=== PATIENT | male | born 1955 | race Caucasian/White ===

== ENCOUNTER 2016-10-13 13:47 | Inpatient (IN) | payer MEDICARE, OTHER ==
[~2016-10-13] VITALS: Ht 185.4 cm; Wt 125.2 kg
[2016-10-13 13:58] VITALS: BP 147/79
[2016-10-13 14:17] LABS: ABG PCO2 32.5 mmHg (35.0-45.0)
[2016-10-13 14:18] LABS: ABG ALLEN TEST POSITIVE; ABG BASE EXCESS 1.8
[2016-10-13 14:32] LABS: BASOPHILS % (AUTO) 0.9 % (0.0-2.0); EOSINOPHILS % (AUTO) 1.3 % (0.0-3.0); LYMPHOCYTES % (AUTO) 26.9 % (20.0-45.0); MEAN CORPUSCULAR HEMOGLOBIN 27.9 PG (27.0-31.0); MEAN CORPUSCULAR HGB CONC 32.4 G/DL (32.0-36.0); MEAN CORPUSCULAR VOLUME 86 FL (80-99); MEAN PLATELET VOLUME 7.6 FL (6.5-10.1); MONOCYTES % (AUTO) 7.4 % (1.0-10.0); NEUTROPHILS % (AUTO) 63.5 % (45.0-75.0); PLATELET COUNT 246 K/UL (150-450); RED BLOOD COUNT 4.75 M/UL (4.70-6.10); RED CELL DISTRIBUTION WIDTH 12.9 % (11.6-14.8); WHITE BLOOD COUNT 8.7 K/UL (4.8-10.8)
--- NOTE | 2016-10-13 14:37 | Emergency Room Report ---
History of Present Illness General Chief Complaint: Dyspnea/Respdistress Source: Patient, EMS Present Illness HPI [id number] sent from "acute facility" for episode of desaturation to high 80s. Patient states he was sent here because "I woke up later than usual." History of schizoaffective/Asbergers Denies COPD/asthma. Not on home O2. Denies SOB, chest pain, fever/chills currently On looking at lower extremities, he has diffuse redness from mid-calf down - states has had for a while and "now they just apply a cream." per paperwork from SNF, mention of "edema" but not cellulitis Allergies: Uncoded Allergies: PENICILLIN (Allergy, Unknown, 10/13/16) Patient History Past Medical History: psych hx Past Surgical History: none Pertinent Family History: none Social History: Denies: smoking, alcohol use, drug use Immunizations: UTD Reviewed Nursing Documentation: PMH: Agreed, PSxH: Agreed Nursing Documentation-PMH Past Medical History: No History, Except For Hx Hypertension: Yes - Hypothyroidism, localized edema BLE History Of Psychiatric Problem: Yes - Autism, Asperger's Review of Systems All Other Systems: negative except mentioned in HPI Physical Exam Vital Signs Date Time Temp Pulse Resp B/P (MAP) Pulse Ox O2 Delivery O2 Flow Rate FiO2 10/13/16 13:41 98.2 90 16 117/71 94 Room Air Sp02 EP Interpretation: reviewed, normal General Appearance: normal inspection, well appearing, no apparent distress, alert, GCS 15, non-toxic Head: normocephalic, atraumatic Eyes: bilateral eye PERRL, bilateral eye EOMI ENT: normal ENT inspection, hearing grossly normal, normal voice Neck: normal inspection, full range of motion, supple, no bony tend Respiratory: normal inspection, lungs clear, normal breath sounds, no respiratory distress, no retraction, no accessory muscle use, no wheezing, speaking full sentences Cardiovascular #1: regular rate, rhythm, no edema Gastrointestinal: normal inspection, normal bowel sounds, non tender, soft, no guarding, no hernia Genitourinary: no CVA tenderness Musculoskeletal: normal inspection, back normal, normal range of motion, Mahogany' s Sign negative, other - Pitting edema 2+ and very erythematous extremities to mid-calf. Right lower extremity with skin breakdown, purulent ulcerations Neurologic: normal inspection, alert, oriented x3, responsive, senior java programmer analyst III-XII nml as tested, motor strength/tone normal, speech normal Psychiatric: normal inspection, judgement/insight normal, mood/affect normal Skin: normal inspection, normal color, no rash Medical Decision Making Diagnostic Impression: Primary Impression: Cellulitis of right lower extremity Additional Impression: Cellulitis of left leg ER Course Re initial complaint of dyspnea - afebrile. O2 sat 100% on RA. No history of asthma/COPD/CHF. No SOB, chest pain, Lungs CTAB. ECG is NSR. Troponin 0. ABG is pH normal. CO2 and O2 normal. Mild respi alkalosis. CXR with mild left sided lower pleural effusion - given afebrile, no leuks, no respi address, will NOT tx for PNA at this time However also with severe bilateral lower extremity cellulitis No leuks Empiric Vanc given in ED Blood Cx pending Bilateral lower ext sono to r/o DVT pending at time of admission Endorses to Dr Bills at 3pm for med/surg admission EKG Diagnostic Results Rate: normal Rhythm: NSR ST Segments: no acute changes ASA given to the pt in ED: No Rhythm Strip Diag. Results EP Interpretation: yes Rate: 75 Rhythm: NSR, no PVC's, no ectopy Chest X-Ray Diagnostic Results Chest X-Ray Diagnostic Results : Chest X-Ray Ordered: Yes # of Views/Limited/Complete: 1 View Indication: Shortness of Breath EP Interpretation: Yes Interpretation: no consolidation, no pneumothorax, no acute cardiopulmonary disease, other - Left lower small pleural effusion Electronically Signed by: Dr Rod Banks MD Last Vital Signs Date Time Temp Pulse Resp B/P (MAP) Pulse Ox O2 Delivery O2 Flow Rate FiO2 10/13/16 13:58 97.8 84 18 147/79 98 Room Air Status: improved Disposition: ADMITTED INPATIENT Condition: Serious ROD BANKS M.D. Oct 13, 2016 14:37
[2016-10-13 14:50] LABS: ALANINE AMINOTRANSFERASE 18 U/L (3-41); ANION GAP 11 (5-15); ASPARTATE AMINO TRANSFERASE 27 U/L (5-40); CARBON DIOXIDE 24 mEQ/L (20-30); CHLORIDE 94 mEQ/L (98-107); CREATININE 0.9 mg/dL (0.7-1.2); GLOMERULAR FILTRATION RATE > 60 mL/min (>60); HEMOLYSIS 95; POTASSIUM 4.5 mEQ/L (3.4-4.9); SODIUM 129 mEQ/L (135-145); TOTAL PROTEIN 6.7 g/dL (6.6-8.7)
[2016-10-13 14:51] LABS: TROPONIN I < 0.30 ng/mL (<=0.30)
[2016-10-13 15:00] LABS: CKMB 5.8 ng/mL (< 6.7)
[2016-10-13] MEDS ORDERED: DULCOLAX10 MG RC (15:11)
[2016-10-13] MEDS ORDERED: FLEET ENEMA133 ML RECTAL (15:12)
[2016-10-13] MEDS ORDERED: ACETAMINOPHEN325 M1 ORAL (15:14)
[2016-10-13] MEDS ORDERED: DuoNeb 0.5-3(2.5)mg/3ml neb HHN PRN (15:15)
[2016-10-13] MEDS ORDERED: IBUPROFEN600 MG ORAL (15:15)
[2016-10-13] MEDS ORDERED: Morphine Sulfate 2mg/ml Inj IVP PRN (15:15)
[2016-10-13] MEDS ORDERED: Nitroglycerin Subl 0.4mg tab (Bottle Of 25) SL PRN (15:15)
[2016-10-13] MEDS ORDERED: Miralax 17gm pkt ORAL PRN (15:15)
[2016-10-13] MEDS ORDERED: DIPHENHYDRAMINE25 M1 ORAL (15:17)
[2016-10-13] MEDS ORDERED: CARDURA8 MG ORAL (15:18)
[2016-10-13] MEDS ORDERED: BENZTROPINE MESY2 MG ORAL (15:19)
[2016-10-13] MEDS ORDERED: COLACE100 MG ORAL (15:20)
[2016-10-13] MEDS ORDERED: LEVOTHYROXINE50 MCG ORAL (15:21)
[2016-10-13] MEDS ORDERED: LIPITOR20 MG ORAL (15:22)
--- NOTE | 2016-10-13 15:22 | Infectious Diseases Prog Note ---
Assessment/Plan Problems: (1) Cellulitis of right lower extremity Assessment & Plan: started on vancomycin and cefepime , will send blood culture (2) Hyponatremia Assessment & Plan: dehydration related, monitor sodium level (3) Hypoxemia Assessment & Plan: pulmonogist is following Subjective Allergies: Uncoded Allergies: PENICILLIN (Allergy, Unknown, 10/13/16) Objective Vital Signs Last 24 Hour Vital Signs Date Time Temp Pulse Resp B/P (MAP) Pulse Ox O2 Delivery O2 Flow Rate FiO2 10/13/16 14:47 84 14 Room Air 10/13/16 13:58 97.8 84 18 147/79 98 Room Air 10/13/16 13:41 98.2 90 16 117/71 94 Room Air Height (Feet): 6 Height (Inches): 1.00 Weight (Pounds): 276 Laboratory Tests Test 10/13/16 13:53 10/13/16 14:15 Arterial Blood pH 7.495 (7.350-7.450) Arterial Blood Partial Pressure CO2 32.5 mmHg (35.0-45.0) L Arterial Blood Partial Pressure O2 72.5 mmHg (75.0-100.0) L Arterial Blood HCO3 24.5 mmol/L (22.0-26.0) Arterial Blood Oxygen Saturation 94.7 % (92.0-98.0) Arterial Blood Base Excess 1.8 Abhishek Test Positive White Blood Count 8.7 K/UL (4.8-10.8) Red Blood Count 4.75 M/UL (4.70-6.10) Hemoglobin 13.3 G/DL (14.2-18.0) L Hematocrit 40.9 % (42.0-52.0) L Mean Corpuscular Volume 86 FL (80-99) Mean Corpuscular Hemoglobin 27.9 PG (27.0-31.0) Mean Corpuscular Hemoglobin Concent 32.4 G/DL (32.0-36.0) Red Cell Distribution Width 12.9 % (11.6-14.8) Platelet Count 246 K/UL (150-450) Mean Platelet Volume 7.6 FL (6.5-10.1) Neutrophils (%) (Auto) 63.5 % (45.0-75.0) Lymphocytes (%) (Auto) 26.9 % (20.0-45.0) Monocytes (%) (Auto) 7.4 % (1.0-10.0) Eosinophils (%) (Auto) 1.3 % (0.0-3.0) Basophils (%) (Auto) 0.9 % (0.0-2.0) Sodium Level 129 mEQ/L (135-145) L Potassium Level 4.5 mEQ/L (3.4-4.9) Chloride Level 94 mEQ/L (98-107) L Carbon Dioxide Level 24 mEQ/L (20-30) Anion Gap 11 (5-15) Blood Urea Nitrogen 14 mg/dL (7-23) Creatinine 0.9 mg/dL (0.7-1.2) Estimat Glomerular Filtration Rate > 60 mL/min (>60) Glucose Level 89 mg/dL (74-106) Calcium Level 9.0 mg/dL (8.6-10.2) Total Bilirubin < 0.2 mg/dL (0.0-1.2) Aspartate Amino Transf (AST/SGOT) 27 U/L (5-40) Alanine Aminotransferase (ALT/SGPT) 18 U/L (3-41) Alkaline Phosphatase 117 U/L (40-129) Total Creatine Kinase 231 U/L (38-174) H Creatine Kinase MB 5.8 ng/mL (< 6.7) Creatine Kinase MB Relative Index 2.5 Troponin I < 0.30 ng/mL (<=0.30) Pro-B-Type Natriuretic Peptide 32 pg/mL (0-125) Total Protein 6.7 g/dL (6.6-8.7) Albumin 3.5 g/dL (3.5-5.2) Globulin 3.2 g/dL Albumin/Globulin Ratio 1.0 (1.0-2.7) Current Medications Medications (Trade) Dose Ordered Sig/Calvin Route PRN Reason Start Time Stop Time Status Last Admin Dose Admin Acetaminophen (Tylenol) 650 mg Q4H PRN ORAL fever 10/13/16 15:15 11/12/16 15:14 UNV Albuterol/ Ipratropium (DuoNeb 0.5-3(2.5)mg/3ml) 3 ml EVERY 4 HOURS PRN HHN Shortness of Breath 10/13/16 15:15 10/18/16 15:14 UNV Cefepime HCl 2 gm/ Dextrose 110 ml @ 220 mls/hr EVERY 12 HOURS IV 10/13/16 21:00 10/20/16 20:59 UNV Clonidine HCl (Catapres) 0.1 mg Q4H PRN ORAL For High Blood Pressure 10/13/16 15:15 11/12/16 15:14 UNV Dextrose (Dextrose 50%) STAT PRN IV Hypoglycemia 10/13/16 15:15 11/12/16 15:14 UNV Heparin Sodium (Porcine) (Heparin 5000 units/ml) 5,000 units EVERY 12 HOURS SUBQ 10/13/16 21:00 11/12/16 20:59 UNV Morphine Sulfate (Morphine Sulfate) 2 mg EVERY 4 HOURS PRN IVP Moderate Pain (Pain Scale 4-6) 10/13/16 15:15 10/20/16 15:14 UNV Nitroglycerin (Ntg) 0.4 mg Every 5 Minutes PRN SL Prn Chest Pain 10/13/16 15:15 11/12/16 15:14 UNV Ondansetron HCl (Zofran) 4 mg Q6H PRN IVP Nausea & Vomiting 10/13/16 15:15 11/12/16 15:14 UNV Polyethylene Glycol (Miralax) 17 gm DAILYPRN PRN ORAL Constipation 10/13/16 15:15 11/12/16 15:14 UNV Temazepam (Restoril) 15 mg HSPRN PRN ORAL Insomnia 10/13/16 15:15 10/20/16 15:14 UNV Vancomycin HCl 1 gm/Dextrose 275 ml @ 183.3 mls/ hr Q24H IV 10/14/16 00:30 10/19/16 00:29 UNV Nico Cheng M.D. Oct 13, 2016 15:22
[2016-10-13] MEDS ORDERED: LISINOPRIL2.5 MG ORAL (15:23)
[2016-10-13] MEDS ORDERED: PROSCAR5 MG ORAL (15:24)
[2016-10-13] MEDS ORDERED: NAPROXEN250 MG ORAL (15:24)
[2016-10-13] MEDS ORDERED: AMITIZA8 MCG ORAL (15:27)
[2016-10-13] MEDS ORDERED: VALIUM10 MG ORAL (15:29)
[2016-10-13] MEDS ORDERED: ATIVAN2 MG ORAL (15:30)
[2016-10-13] MEDS ORDERED: DEPAKOTE ER500 MG ORAL (15:35)
[2016-10-13] MEDS ORDERED: QUETIAPINE FUM200 MG ORAL (15:36)
[2016-10-13] MEDS ORDERED: ZYPREXA10 MG ORAL (15:41)
[2016-10-13] MEDS ORDERED: LATUDA20 MG PO (15:42)
--- NOTE | 2016-10-13 15:43 | Diagnostic Imaging Report ---
Indication: SOB Technique: One view of the chest Comparison: none Findings: Inspiration is somewhat suboptimal. There is atelectasis at the left lung base. The lungs and pleural space otherwise clear. The heart is borderline enlarged. Impression: Left basilar atelectasis No definite acute process otherwise Borderline cardiomegaly
[2016-10-13] MEDS ORDERED: Vancomycin 1500mg IVPB ONE (15:45)
[2016-10-13] MEDS ORDERED: Clindamycin 900mg 50 ML IVPB ONE (16:45)
[2016-10-13 16:55] VITALS: BP 124/60
[2016-10-13 17:36] VITALS: BP 133/81
--- NOTE | 2016-10-13 18:55 | Consultation ---
History of Present Illness General Chief Complaint: Dyspnea/Respdistress Present Illness Allergies: Coded Allergies: PENICILLINS (Unverified Allergy, Unknown, 10/13/16) Medication History Scheduled Atorvastatin Calcium* (Lipitor*), 20 MG ORAL BEDTIME, (Reported) Benztropine Mesylate* (Benztropine Mesylate*), 2 MG ORAL TWICE A DAY, (Reported) Divalproex Sodium* (Depakote Er*), 1,000 MG ORAL BEDTIME, (Reported) Docusate Sodium* (Colace*), 100 MG ORAL DAILY, (Reported) Doxazosin Mesylate (Cardura), 8 MG ORAL DAILY, (Reported) Finasteride* (Proscar*), 5 MG ORAL DAILY, (Reported) Levothyroxine Sodium* (Levothyroxine Sodium*), 50 MCG ORAL DAILY, (Reported) Lisinopril* (Lisinopril*), 2.5 MG ORAL DAILY, (Reported) Lorazepam* (Ativan*), 2 MG ORAL BEDTIME, (Reported) Lubiprostone (Amitiza), 8 MCG ORAL EVERY 12 HOURS, (Reported) Lurasidone Hcl (Latuda), 20 MG PO TWICE A DAY, (Reported) Na Phos,M-B/Na Phos,Di-Ba* (Fleet Enema*), 133 ML RECTAL PRN, (Reported) Naproxen* (Naprosyn*), 250 MG ORAL TWICE A DAY, (Reported) Olanzapine* (Zyprexa*), 10 MG ORAL TWICE A DAY, (Reported) Quetiapine Fumarate* (Seroquel*), 600 MG ORAL BEDTIME, (Reported) Scheduled PRN Acetaminophen* (Acetaminophen 325MG Tablet*), 325 MG ORAL Q6H PRN for For Pain, (Reported) Diazepam* (Valium*), 10 MG ORAL TID PRN for Agitation, (Reported) Diphenhydramine Hcl* (Diphenhydramine Hcl*), 50 MG ORAL THREE TIMES A DAY PRN for Itching, (Reported) Ibuprofen* (Motrin*), 400 MG ORAL Q6HR PRN for For Pain, (Reported) Miscellaneous Medications Bisacodyl (Dulcolax), 10 MG RC, (Reported) Patient History Healthcare decision maker Resuscitation status Advanced Directive on File Physical Exam Last 24 Hour Vital Signs Date Time Temp Pulse Resp B/P (MAP) Pulse Ox O2 Delivery O2 Flow Rate FiO2 10/13/16 17:36 97.3 86 18 133/81 99 Room Air 10/13/16 17:11 86 15 135/64 100 Room Air 10/13/16 16:55 97.5 84 17 124/60 100 Room Air 10/13/16 14:47 84 14 Room Air 10/13/16 13:58 97.8 84 18 147/79 98 Room Air 10/13/16 13:41 98.2 90 16 117/71 94 Room Air Intake and Output 10/13/16 10/14/16 19:00 07:00 Intake Total 0 ml Balance 0 ml Intake Oral 0 ml Laboratory Tests Test 10/13/16 13:53 10/13/16 14:15 Arterial Blood pH 7.495 (7.350-7.450) Arterial Blood Partial Pressure CO2 32.5 mmHg (35.0-45.0) L Arterial Blood Partial Pressure O2 72.5 mmHg (75.0-100.0) L Arterial Blood HCO3 24.5 mmol/L (22.0-26.0) Arterial Blood Oxygen Saturation 94.7 % (92.0-98.0) Arterial Blood Base Excess 1.8 Abhishek Test Positive White Blood Count 8.7 K/UL (4.8-10.8) Red Blood Count 4.75 M/UL (4.70-6.10) Hemoglobin 13.3 G/DL (14.2-18.0) L Hematocrit 40.9 % (42.0-52.0) L Mean Corpuscular Volume 86 FL (80-99) Mean Corpuscular Hemoglobin 27.9 PG (27.0-31.0) Mean Corpuscular Hemoglobin Concent 32.4 G/DL (32.0-36.0) Red Cell Distribution Width 12.9 % (11.6-14.8) Platelet Count 246 K/UL (150-450) Mean Platelet Volume 7.6 FL (6.5-10.1) Neutrophils (%) (Auto) 63.5 % (45.0-75.0) Lymphocytes (%) (Auto) 26.9 % (20.0-45.0) Monocytes (%) (Auto) 7.4 % (1.0-10.0) Eosinophils (%) (Auto) 1.3 % (0.0-3.0) Basophils (%) (Auto) 0.9 % (0.0-2.0) Sodium Level 129 mEQ/L (135-145) L Potassium Level 4.5 mEQ/L (3.4-4.9) Chloride Level 94 mEQ/L (98-107) L Carbon Dioxide Level 24 mEQ/L (20-30) Anion Gap 11 (5-15) Blood Urea Nitrogen 14 mg/dL (7-23) Creatinine 0.9 mg/dL (0.7-1.2) Estimat Glomerular Filtration Rate > 60 mL/min (>60) Glucose Level 89 mg/dL (74-106) Calcium Level 9.0 mg/dL (8.6-10.2) Total Bilirubin < 0.2 mg/dL (0.0-1.2) Aspartate Amino Transf (AST/SGOT) 27 U/L (5-40) Alanine Aminotransferase (ALT/SGPT) 18 U/L (3-41) Alkaline Phosphatase 117 U/L (40-129) Total Creatine Kinase 231 U/L (38-174) H Creatine Kinase MB 5.8 ng/mL (< 6.7) Creatine Kinase MB Relative Index 2.5 Troponin I < 0.30 ng/mL (<=0.30) Pro-B-Type Natriuretic Peptide 32 pg/mL (0-125) Total Protein 6.7 g/dL (6.6-8.7) Albumin 3.5 g/dL (3.5-5.2) Globulin 3.2 g/dL Albumin/Globulin Ratio 1.0 (1.0-2.7) Height (Feet): 6 Height (Inches): 1.00 Weight (Pounds): 276 Medications Current Medications Medications (Trade) Dose Ordered Sig/Calvin Route PRN Reason Start Time Stop Time Status Last Admin Dose Admin Acetaminophen (Tylenol) 650 mg Q4H PRN ORAL fever 10/13/16 15:15 11/12/16 15:14 Albuterol/ Ipratropium (DuoNeb 0.5-3(2.5)mg/3ml) 3 ml Q4H PRN HHN Shortness of Breath 10/13/16 15:15 10/18/16 15:14 Cefepime HCl 2 gm/ Dextrose 110 ml @ 220 mls/hr EVERY 12 HOURS IV 10/13/16 21:00 10/20/16 20:59 UNV Clonidine HCl (Catapres) 0.1 mg Q4H PRN ORAL SBP > 160 10/13/16 15:15 11/12/16 15:14 Dextrose (Dextrose 50%) STAT PRN IV Hypoglycemia 10/13/16 15:15 11/12/16 15:14 Heparin Sodium (Porcine) (Heparin 5000 units/ml) 5,000 units EVERY 12 HOURS SUBQ 10/13/16 21:00 11/12/16 20:59 Morphine Sulfate (Morphine Sulfate) 2 mg Q4H PRN IVP Moderate Pain (Pain Scale 4-6) 10/13/16 15:15 10/20/16 15:14 Nitroglycerin (Ntg) 0.4 mg Every 5 Minutes PRN SL Prn Chest Pain 10/13/16 15:15 11/12/16 15:14 Ondansetron HCl (Zofran) 4 mg Q6H PRN IVP Nausea & Vomiting 10/13/16 15:15 11/12/16 15:14 Polyethylene Glycol (Miralax) 17 gm DAILYPRN PRN ORAL Constipation 10/13/16 15:15 11/12/16 15:14 Temazepam (Restoril) 15 mg HSPRN PRN ORAL Insomnia 10/13/16 15:15 10/20/16 15:14 Vancomycin HCl 1 gm/Dextrose 275 ml @ 183.3 mls/ hr Q24H IV 10/14/16 00:30 10/19/16 00:29 UNV MAGNO KERN Oct 13, 2016 18:55
[2016-10-13] MEDS ORDERED: Cefepime HCl 2 GM in D5W 110 ML IV SCH (21:00)
[2016-10-13] MEDS: Heparin 5000 units/ml inj SUBQ SCH (21:42)
[2016-10-13] MEDS: Vancomycin 1250mg/D5W 250ml 250 ML IVPB SCH (23:09)
--- NOTE | 2016-10-13 23:30 | History and Physical Report ---
DATE OF ADMISSION: 10/13/2016 TIME SEEN: At 2 p.m. CONSULTANTS: 1. Nisa Burleson M.D. 2. Dr. Erwin. 3. Qasim Perla M.D. 4. Lucille Ramires M.D. CHIEF COMPLAINT: Hypoxia, lower extremity cellulitis, and hypertensive urgency. BRIEF HISTORY: This is a 61-year-old male from [facility] presented with the above-mentioned diagnoses, currently in the ER, getting evaluated, labs being drawn, slightly confused in bed, no complaints. PAST MEDICAL HISTORY: Includes hypoxia, bilateral lower extremity cellulitis, hypertension, and schizophrenia. PAST SURGICAL HISTORY: Unknown. MEDICATIONS: We will obtain list shortly. ALLERGIES: Penicillin. SOCIAL HISTORY: No smoking, no alcohol, and no intravenous drug abuse. FAMILY HISTORY: Noncontributory. REVIEW OF SYSTEMS: No chest pain. Slight shortness of breath. No nausea, vomiting, or diarrhea. PHYSICAL EXAMINATION: GENERAL: Calm in bed, oriented x2, and in no acute distress. VITAL SIGNS: Temperature is 97 degrees, pulse 84, respirations 18, and blood pressure 147/79. CARDIOVASCULAR: No murmurs. LUNGS: Poor air exchange. ABDOMEN: Bowel sounds are positive. Nontender and nondistended. EXTREMITIES: No cyanosis or clubbing. There is 1+ edema of bilateral lower extremity, redness, swelling, and warmth up to 2/3 of the mid calf. NEUROLOGICAL: The patient moves all extremities, but slightly weak. LABORATORY DATA: Pending. ASSESSMENT: 1. Hypoxia. 2. Bilateral lower extremity cellulitis. 3. Hypertensive urgency. 4. Schizophrenia. PLAN: 1. Continue premedications. 2. O2 and pulmonary treatment. 3. Antibiotics per Infectious Disease. 4. Wound care. 5. Resume home medications. 6. OT, PT, and dietary evaluation. 7. CBC and BMP in the morning. 8. Dr. Ramires, Dr. Burleson, Dr. Erwin, and Dr. Perla to consult. 9. Check labs when they become available. Severino Bills D.O. DR: CHRIS JOB#: [id number] CC:
[2016-10-14] VITALS: BP 147/74
[2016-10-14] MEDS ORDERED: Vancomycin 1 GM in D5W 275 ML IV SCH (00:30)
--- NOTE | 2016-10-14 00:31 | Consultation ---
DATE OF CONSULTATION: 10/13/2016 INFECTIOUS DISEASES CONSULTATION CONSULTING PHYSICIAN: Nico Cheng M.D. REQUESTING PHYSICIAN: Severino Bills M.D. REASON FOR CONSULTATION: Lower extremity cellulitis, recommendation for antibiotics therapy. HISTORY OF PRESENT ILLNESS: The patient is a 61-year-old male with history of schizophrenia, psychiatric disorder, autism, and Asperger's disorder, was brought into [facility] from acute facility for desaturation with low oxygen level of 80%. The patient was lethargic. He was not on any home oxygen. Denied any chest pain, cough, or shortness of breath. The patient had chest x-ray, which showed left lower lobe effusion. His lower extremity showed redness from the mid calf all the way down, so he was started on IV vancomycin and I was consulted by the primary provider for antibiotics treatment and further management. As of note, the patient is a poor historian, cannot provide any good history. History was mainly obtained from the medical record. PAST MEDICAL HISTORY: Significant for schizophrenia, Asperger's disorder, hypothyroidism, and autism. PAST SURGICAL HISTORY: Negative. MEDICATIONS: He is on vancomycin and cefepime. ALLERGIES: He is allergic to penicillin SOCIAL HISTORY: No recent drugs, tobacco, or alcohol. FAMILY HISTORY: Unable to obtain. PHYSICAL EXAMINATION: VITAL SIGNS: Temperature is 97.8 degrees, pulse 84, respirations 18, blood pressure 147/79, and saturation 98% on room air. GENERAL: Middle-aged male, lying in bed, comfortable, not in distress. HEENT: Normocephalic and atraumatic. Pupils are reactive to light. Moist oral mucosa. No exudate. NECK: Supple. No lymphadenopathy. CARDIOVASCULAR: Regular rate and rhythm. LUNGS: Clear bilaterally. Diminished breathing sounds at the bases. ABDOMEN: Soft, nontender, and nondistended. Positive bowel sounds. No hepatosplenomegaly. EXTREMITIES: He had redness, edema, and erythema on both lower extremities from the mid calf and down to the ankle. LABORATORY DATA: Labs showed white count of 8.7, hemoglobin of 13.3, and platelet count of 246,000. BUN is 14 and creatinine 0.9. AST is 27 and ALT 18. ASSESSMENT AND RECOMMENDATION: 1. Lower extremity cellulitis. Continue intravenous vancomycin and cefepime pending blood culture results. 2. Hyponatremia, suspect dehydration, monitor sodium level. 3. Hypoxemia. Building Cleaner is following. Nico Cheng M.D. DR: Elizabeth JOB#: [id number] CC:
[2016-10-14 07:07] LABS: BASOPHILS % (AUTO) 0.6 % (0.0-2.0); EOSINOPHILS % (AUTO) 1.4 % (0.0-3.0); LYMPHOCYTES % (AUTO) 19.2 % (20.0-45.0); MEAN CORPUSCULAR HEMOGLOBIN 28.3 PG (27.0-31.0); MEAN CORPUSCULAR HGB CONC 32.5 G/DL (32.0-36.0); MEAN CORPUSCULAR VOLUME 87 FL (80-99); MEAN PLATELET VOLUME 8.3 FL (6.5-10.1); MONOCYTES % (AUTO) 9.6 % (1.0-10.0); NEUTROPHILS % (AUTO) 69.2 % (45.0-75.0); PLATELET COUNT 252 K/UL (150-450); RED BLOOD COUNT 4.87 M/UL (4.70-6.10); RED CELL DISTRIBUTION WIDTH 12.8 % (11.6-14.8); WHITE BLOOD COUNT 8.9 K/UL (4.8-10.8)
[2016-10-14 07:25] LABS: ALANINE AMINOTRANSFERASE 16 U/L (3-41); ALBUMIN/GLOBULIN RATIO 1.1 (1.0-2.7); ANION GAP 10 (5-15); ASPARTATE AMINO TRANSFERASE 19 U/L (5-40); CALCIUM 8.8 mg/dL (8.6-10.2); CARBON DIOXIDE 27 mEQ/L (20-30); CHLORIDE 100 mEQ/L (98-107); GLOMERULAR FILTRATION RATE > 60 mL/min (>60); HEMOLYSIS 5; POTASSIUM 4.3 mEQ/L (3.4-4.9); SODIUM 137 mEQ/L (135-145); TOTAL PROTEIN 6.6 g/dL (6.6-8.7)
[2016-10-14 08:00] VITALS: BP 125/73
[2016-10-14] MEDS: Vancomycin 1250mg/D5W 250ml 250 ML IVPB SCH ×2 (08:00→16:00)
--- NOTE | 2016-10-14 08:44 | Pulmonology Progress Note ---
Assessment/Plan Assessment/Plan ASSESSMENT cellulitis BLE hypoxemia acute hypoNa schizoaffective disorder PLAN OF CARE MS floor abx ID follows O2 HHN prn pulse ox stable on RA CXR with left base atelectasis Na stable Venous Duplex BLE negative DVT prophylaxis pain management PT/OT recommend psych eval as per PMD discretion case discussed and evaluated by supervising physician Subjective Allergies: Coded Allergies: CHLORPROMAZINE (Verified Allergy, Unknown, 10/13/16) HALOPERIDOL (Verified Allergy, Unknown, 10/13/16) PENICILLINS (Unverified Allergy, Unknown, 10/13/16) ZIPRASIDONE (Verified Allergy, Unknown, 10/13/16) Subjective patient noncompliant declined to provide any answers to my questions, yelling pulse ox stable on RA, no signs of respiratory distress Na up to normal Objective Last 24 Hour Vital Signs Date Time Temp Pulse Resp B/P (MAP) Pulse Ox O2 Delivery O2 Flow Rate FiO2 10/14/16 00:00 97.3 86 20 147/74 93 Room Air 10/13/16 17:36 97.3 86 18 133/81 99 Room Air 10/13/16 17:11 86 15 135/64 100 Room Air 10/13/16 16:55 97.5 84 17 124/60 100 Room Air 10/13/16 14:47 84 14 Room Air 10/13/16 13:58 97.8 84 18 147/79 98 Room Air 10/13/16 13:41 98.2 90 16 117/71 94 Room Air General Appearance: no acute distress, other - awake alert, anxious obese male HEENT: normocephalic, atraumatic, anicteric Respiratory/Chest: lungs clear - with moderate air entry , no respiratory distress, no accessory muscle use Cardiovascular: normal rate, regular rhythm, no JVD Abdomen: normal bowel sounds, soft, non tender, non distended Extremities: other - BLE with edema +2 and erythema Neurologic/Psychiatric: alert, responsive Musculoskeletal: normal muscle bulk Laboratory Tests 10/13/16 13:53: Arterial Blood pH 7.495H, Arterial Blood Partial Pressure CO2 32.5L, Arterial Blood Partial Pressure O2 72.5L, Arterial Blood HCO3 24.5, Arterial Blood Oxygen Saturation 94.7, Arterial Blood Base Excess 1.8, Abhishek Test Positive 10/13/16 14:15: White Blood Count 8.7, Red Blood Count 4.75, Hemoglobin 13.3L, Hematocrit 40.9L , Mean Corpuscular Volume 86, Mean Corpuscular Hemoglobin 27.9, Mean Corpuscular Hemoglobin Concent 32.4, Red Cell Distribution Width 12.9, Platelet Count 246, Mean Platelet Volume 7.6, Neutrophils (%) (Auto) 63.5, Lymphocytes (% ) (Auto) 26.9, Monocytes (%) (Auto) 7.4, Eosinophils (%) (Auto) 1.3, Basophils ( %) (Auto) 0.9, Sodium Level 129L, Potassium Level 4.5, Chloride Level 94L, Carbon Dioxide Level 24, Anion Gap 11, Blood Urea Nitrogen 14, Creatinine 0.9, Estimat Glomerular Filtration Rate > 60, Glucose Level 89, Calcium Level 9.0, Total Bilirubin < 0.2, Aspartate Amino Transf (AST/SGOT) 27, Alanine Aminotransferase (ALT/SGPT) 18, Alkaline Phosphatase 117, Total Creatine Kinase 231H, Creatine Kinase MB 5.8, Creatine Kinase MB Relative Index 2.5, Troponin I < 0.30, Pro-B-Type Natriuretic Peptide 32, Total Protein 6.7, Albumin 3.5, Globulin 3.2, Albumin/Globulin Ratio 1.0 10/14/16 06:10: White Blood Count 8.9, Red Blood Count 4.87, Hemoglobin 13.8L, Hematocrit 42.4, Mean Corpuscular Volume 87, Mean Corpuscular Hemoglobin 28.3, Mean Corpuscular Hemoglobin Concent 32.5, Red Cell Distribution Width 12.8, Platelet Count 252, Mean Platelet Volume 8.3, Neutrophils (%) (Auto) 69.2, Lymphocytes (%) (Auto) 19.2L, Monocytes (%) (Auto) 9.6, Eosinophils (%) (Auto) 1.4, Basophils (%) (Auto ) 0.6, Sodium Level 137, Potassium Level 4.3, Chloride Level 100, Carbon Dioxide Level 27, Anion Gap 10, Blood Urea Nitrogen 13, Creatinine 1.0, Estimat Glomerular Filtration Rate > 60, Glucose Level 112H, Calcium Level 8.8, Total Bilirubin 0.2, Aspartate Amino Transf (AST/SGOT) 19, Alanine Aminotransferase ( ALT/SGPT) 16, Alkaline Phosphatase 125, Total Protein 6.6, Albumin 3.5, Globulin 3.1, Albumin/Globulin Ratio 1.1 Current Medications Medications (Trade) Dose Ordered Sig/Calvin Route PRN Reason Start Time Stop Time Status Last Admin Dose Admin Acetaminophen (Tylenol) 650 mg Q4H PRN ORAL fever 10/13/16 15:15 11/12/16 15:14 Albuterol/ Ipratropium (DuoNeb 0.5-3(2.5)mg/3ml) 3 ml Q4H PRN HHN Shortness of Breath 10/13/16 15:15 10/18/16 15:14 Clonidine HCl (Catapres) 0.1 mg Q4H PRN ORAL SBP > 160 10/13/16 15:15 11/12/16 15:14 Dextrose (Dextrose 50%) STAT PRN IV Hypoglycemia 10/13/16 15:15 11/12/16 15:14 Heparin Sodium (Porcine) (Heparin 5000 units/ml) 5,000 units EVERY 12 HOURS SUBQ 10/13/16 21:00 11/12/16 20:59 10/13/16 21:42 Levofloxacin (Levaquin) 750 mg Q24H ORAL 10/13/16 20:00 10/20/16 19:59 10/13/16 21:40 Morphine Sulfate (Morphine Sulfate) 2 mg Q4H PRN IVP Moderate Pain (Pain Scale 4-6) 10/13/16 15:15 10/20/16 15:14 Nitroglycerin (Ntg) 0.4 mg Every 5 Minutes PRN SL Prn Chest Pain 10/13/16 15:15 11/12/16 15:14 Ondansetron HCl (Zofran) 4 mg Q6H PRN IVP Nausea & Vomiting 10/13/16 15:15 11/12/16 15:14 Polyethylene Glycol (Miralax) 17 gm DAILYPRN PRN ORAL Constipation 10/13/16 15:15 11/12/16 15:14 Temazepam (Restoril) 15 mg HSPRN PRN ORAL Insomnia 10/13/16 15:15 10/20/16 15:14 10/13/16 21:39 Vancomycin HCl (Vanco rx to dose) 1 ea DAILYPRN PRN MISC PRN RX PROTOCOL 10/13/16 20:00 11/12/16 19:59 Vancomycin HCl/ Dextrose 250 ml @ 166.667 mls/hr Q8HR@0000,0800,1600 IVPB 10/14/16 00:00 10/19/16 00:00 10/13/16 23:09 Livan ([facility])Roberta NP Oct 14, 2016 08:44
[2016-10-14] MEDS: Heparin 5000 units/ml inj SUBQ SCH ×2 (09:00→20:28)
[2016-10-14] MEDS ORDERED: LORazepam Inj 2mg/ml 1ml IM ONE (11:35)
[2016-10-14] MEDS ORDERED: DiphenhydrAMINE 50mg/ml Inj IM ONE (11:35)
--- NOTE | 2016-10-14 13:58 | General Progress Note ---
Assessment/Plan Problem List: (1) Cellulitis of right lower extremity ICD Codes: L03.115 - Cellulitis of right lower limb SNOMED: 583880013 (2) Cellulitis of left leg ICD Codes: L03.116 - Cellulitis of left lower limb SNOMED: 692979999 (3) Hypoxemia ICD Codes: R09.02 - Hypoxemia SNOMED: 556107598 (4) Hyponatremia ICD Codes: E87.1 - Hypo-osmolality and hyponatremia SNOMED: 48596704 (5) Schizo-affective schizophrenia, chronic condition with acute exacerbation ICD Codes: F25.8 - Other schizoaffective disorders SNOMED: 570999916 Status: stable, progressing, tolerating diet Assessment/Plan ot pt diet wound care abx cbc bmp am ltach eval Subjective Constitutional: Reports: weakness Allergies: Coded Allergies: CHLORPROMAZINE (Verified Allergy, Unknown, 10/13/16) HALOPERIDOL (Verified Allergy, Unknown, 10/13/16) PENICILLINS (Unverified Allergy, Unknown, 10/13/16) ZIPRASIDONE (Verified Allergy, Unknown, 10/13/16) All Systems: reviewed and negative except above Subjective sitting calm eating Objective Last 24 Hour Vital Signs Date Time Temp Pulse Resp B/P (MAP) Pulse Ox O2 Delivery O2 Flow Rate FiO2 10/14/16 08:00 97.7 92 19 125/73 96 Room Air 10/14/16 00:00 97.3 86 20 147/74 93 Room Air 10/13/16 17:36 97.3 86 18 133/81 99 Room Air 10/13/16 17:11 86 15 135/64 100 Room Air 10/13/16 16:55 97.5 84 17 124/60 100 Room Air 10/13/16 14:47 84 14 Room Air 10/13/16 13:58 97.8 84 18 147/79 98 Room Air Laboratory Tests 10/13/16 14:15: White Blood Count 8.7, Red Blood Count 4.75, Hemoglobin 13.3L, Hematocrit 40.9L , Mean Corpuscular Volume 86, Mean Corpuscular Hemoglobin 27.9, Mean Corpuscular Hemoglobin Concent 32.4, Red Cell Distribution Width 12.9, Platelet Count 246, Mean Platelet Volume 7.6, Neutrophils (%) (Auto) 63.5, Lymphocytes (% ) (Auto) 26.9, Monocytes (%) (Auto) 7.4, Eosinophils (%) (Auto) 1.3, Basophils ( %) (Auto) 0.9, Sodium Level 129L, Potassium Level 4.5, Chloride Level 94L, Carbon Dioxide Level 24, Anion Gap 11, Blood Urea Nitrogen 14, Creatinine 0.9, Estimat Glomerular Filtration Rate > 60, Glucose Level 89, Calcium Level 9.0, Total Bilirubin < 0.2, Aspartate Amino Transf (AST/SGOT) 27, Alanine Aminotransferase (ALT/SGPT) 18, Alkaline Phosphatase 117, Total Creatine Kinase 231H, Creatine Kinase MB 5.8, Creatine Kinase MB Relative Index 2.5, Troponin I < 0.30, Pro-B-Type Natriuretic Peptide 32, Total Protein 6.7, Albumin 3.5, Globulin 3.2, Albumin/Globulin Ratio 1.0 10/14/16 06:10: White Blood Count 8.9, Red Blood Count 4.87, Hemoglobin 13.8L, Hematocrit 42.4, Mean Corpuscular Volume 87, Mean Corpuscular Hemoglobin 28.3, Mean Corpuscular Hemoglobin Concent 32.5, Red Cell Distribution Width 12.8, Platelet Count 252, Mean Platelet Volume 8.3, Neutrophils (%) (Auto) 69.2, Lymphocytes (%) (Auto) 19.2L, Monocytes (%) (Auto) 9.6, Eosinophils (%) (Auto) 1.4, Basophils (%) (Auto ) 0.6, Sodium Level 137, Potassium Level 4.3, Chloride Level 100, Carbon Dioxide Level 27, Anion Gap 10, Blood Urea Nitrogen 13, Creatinine 1.0, Estimat Glomerular Filtration Rate > 60, Glucose Level 112H, Calcium Level 8.8, Total Bilirubin 0.2, Aspartate Amino Transf (AST/SGOT) 19, Alanine Aminotransferase ( ALT/SGPT) 16, Alkaline Phosphatase 125, Total Protein 6.6, Albumin 3.5, Globulin 3.1, Albumin/Globulin Ratio 1.1 Height (Feet): 6 Height (Inches): 1.00 Weight (Pounds): 276 General Appearance: lethargic, confused EENT: normal ENT inspection Neck: normal alignment Cardiovascular: normal peripheral pulses, normal rate, regular rhythm Respiratory/Chest: chest wall non-tender, lungs clear, normal breath sounds Abdomen: normal bowel sounds, non tender, soft Extremities: normal inspection Edema: 1+ Arm (L), 1+ Arm (R), 1+ Leg (L), 1+ Leg (R), 1+ Pedal (L), 1+ Pedal ( R), 1+ Generalized Neurologic: responsive, motor weakness Skin: normal pigmentation, warm/dry Objective bl le redness CARLOS BUTLER Oct 14, 2016 13:58
[2016-10-14] MEDS ORDERED: fluPHENAZine Decanoate 25mg Inj IM ONE (14:00)
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
[2016-10-14 16:00] VITALS: BP 157/96
--- NOTE | 2016-10-14 18:21 | Infectious Diseases Prog Note ---
Assessment/Plan Problems: (1) Cellulitis of right lower extremity Assessment & Plan: on vancomycin and cefepime , await blood culture (2) Hyponatremia Assessment & Plan: dehydration related, monitor sodium level (3) Hypoxemia Assessment & Plan: pulmonogist is following Subjective ROS Limited/Unobtainable: Yes Allergies: Coded Allergies: CHLORPROMAZINE (Verified Allergy, Unknown, 10/13/16) HALOPERIDOL (Verified Allergy, Unknown, 10/13/16) PENICILLINS (Unverified Allergy, Unknown, 10/13/16) ZIPRASIDONE (Verified Allergy, Unknown, 10/13/16) Objective Vital Signs Last 24 Hour Vital Signs Date Time Temp Pulse Resp B/P (MAP) Pulse Ox O2 Delivery O2 Flow Rate FiO2 10/14/16 16:00 98.8 98 20 157/96 98 Room Air 10/14/16 08:00 97.7 92 19 125/73 96 Room Air 10/14/16 00:00 97.3 86 20 147/74 93 Room Air Height (Feet): 6 Height (Inches): 1.00 Weight (Pounds): 276 General Appearance: WD/WN, cachetic HEENT: normocephalic, anicteric, mucous membranes moist Respiratory/Chest: lungs clear, normal breath sounds, no respiratory distress Cardiovascular: normal peripheral pulses, normal rate, regular rhythm, no gallop/murmur Abdomen: normal bowel sounds, soft, non tender, no organomegaly, non distended , no mass Skin: no rash, no lesions, ulcers Laboratory Tests Test 10/14/16 06:10 White Blood Count 8.9 K/UL (4.8-10.8) Red Blood Count 4.87 M/UL (4.70-6.10) Hemoglobin 13.8 G/DL (14.2-18.0) L Hematocrit 42.4 % (42.0-52.0) Mean Corpuscular Volume 87 FL (80-99) Mean Corpuscular Hemoglobin 28.3 PG (27.0-31.0) Mean Corpuscular Hemoglobin Concent 32.5 G/DL (32.0-36.0) Red Cell Distribution Width 12.8 % (11.6-14.8) Platelet Count 252 K/UL (150-450) Mean Platelet Volume 8.3 FL (6.5-10.1) Neutrophils (%) (Auto) 69.2 % (45.0-75.0) Lymphocytes (%) (Auto) 19.2 % (20.0-45.0) L Monocytes (%) (Auto) 9.6 % (1.0-10.0) Eosinophils (%) (Auto) 1.4 % (0.0-3.0) Basophils (%) (Auto) 0.6 % (0.0-2.0) Sodium Level 137 mEQ/L (135-145) Potassium Level 4.3 mEQ/L (3.4-4.9) Chloride Level 100 mEQ/L (98-107) Carbon Dioxide Level 27 mEQ/L (20-30) Anion Gap 10 (5-15) Blood Urea Nitrogen 13 mg/dL (7-23) Creatinine 1.0 mg/dL (0.7-1.2) Estimat Glomerular Filtration Rate > 60 mL/min (>60) Glucose Level 112 mg/dL (74-106) H Calcium Level 8.8 mg/dL (8.6-10.2) Total Bilirubin 0.2 mg/dL (0.0-1.2) Aspartate Amino Transf (AST/SGOT) 19 U/L (5-40) Alanine Aminotransferase (ALT/SGPT) 16 U/L (3-41) Alkaline Phosphatase 125 U/L (40-129) Total Protein 6.6 g/dL (6.6-8.7) Albumin 3.5 g/dL (3.5-5.2) Globulin 3.1 g/dL Albumin/Globulin Ratio 1.1 (1.0-2.7) Current Medications Medications (Trade) Dose Ordered Sig/Calvin Route PRN Reason Start Time Stop Time Status Last Admin Dose Admin Acetaminophen (Tylenol) 650 mg Q4H PRN ORAL fever 10/13/16 15:15 11/12/16 15:14 Albuterol/ Ipratropium (DuoNeb 0.5-3(2.5)mg/3ml) 3 ml Q4H PRN HHN Shortness of Breath 10/13/16 15:15 10/18/16 15:14 Clindamycin HCl (Cleocin) 450 mg EVERY 6 HOURS ORAL 10/14/16 18:00 10/21/16 17:59 Clonidine HCl (Catapres) 0.1 mg Q4H PRN ORAL SBP > 160 10/13/16 15:15 11/12/16 15:14 Dextrose (Dextrose 50%) STAT PRN IV Hypoglycemia 10/13/16 15:15 11/12/16 15:14 Divalproex Sodium (Depakote ER) 500 mg BEDTIME ORAL 10/14/16 21:00 11/13/16 20:59 Heparin Sodium (Porcine) (Heparin 5000 units/ml) 5,000 units EVERY 12 HOURS SUBQ 10/13/16 21:00 11/12/16 20:59 10/13/16 21:42 Levofloxacin (Levaquin) 750 mg Q24H ORAL 10/13/16 20:00 10/20/16 19:59 10/13/16 21:40 Morphine Sulfate (Morphine Sulfate) 2 mg Q4H PRN IVP Moderate Pain (Pain Scale 4-6) 10/13/16 15:15 10/20/16 15:14 Nitroglycerin (Ntg) 0.4 mg Every 5 Minutes PRN SL Prn Chest Pain 10/13/16 15:15 11/12/16 15:14 Ondansetron HCl (Zofran) 4 mg Q6H PRN IVP Nausea & Vomiting 10/13/16 15:15 11/12/16 15:14 Polyethylene Glycol (Miralax) 17 gm DAILYPRN PRN ORAL Constipation 10/13/16 15:15 11/12/16 15:14 Risperidone (RisperDAL) 2 mg BEDTIME ORAL 10/14/16 21:00 11/13/16 20:59 Temazepam (Restoril) 15 mg HSPRN PRN ORAL Insomnia 10/13/16 15:15 10/20/16 15:14 10/13/16 21:39 Nico Cheng M.D. Oct 14, 2016 18:21
[2016-10-14] MEDS: Clindamycin 150mg cap ORAL SCH ×2 (18:30→23:53)
[2016-10-14] MEDS ORDERED: RESTORIL15 MG ORAL (18:52)
[2016-10-14 20:00] VITALS: BP 115/69
[2016-10-14] MEDS: Atorvastatin 20mg tab ORAL SCH (20:27)
[2016-10-14] MEDS: Depakote ER 500mg tab ORAL SCH (20:27)
[2016-10-15] VITALS: BP 139/90
[2016-10-15 04:00] VITALS: BP 134/88
--- NOTE | 2016-10-15 05:15 | Consultation ---
DATE OF CONSULTATION: 10/14/2016 HISTORY OF PRESENT ILLNESS: This is a 61-year-old male patient with cellulitis. This patient . The reason why he was seen in consultation is because the patient has a history of schizoaffective bipolar type. He is normally on Risperdal for his psychiatric history of schizoaffective bipolar type admitted to multiple hospitals, the last one being [facility]. SOCIAL HISTORY: Lives in [facility]. Financially supported by [facility] and Medicare. SUBSTANCE ABUSE HISTORY: Denies drug or alcohol use. MENTAL STATUS EXAMINATION: This is a 61-year-old male with psychomotor retardation. Mood is depressed. Affect is guarded and restricted. Thought process is disorganized. . ASSESSMENT: Paranoid schizophrenia, acute exacerbation. PLAN: Continue on his Risperdal, as needed. I would like to thank Dr. Severino Bills for this consultation. I recommend . Lucille Ramires M.D. DR: Mary JOB#: [id number] CC:
[2016-10-15] MEDS: Clindamycin 150mg cap ORAL SCH ×4 (06:25→23:39)
[2016-10-15 07:42] LABS: BASOPHILS % (AUTO) 0.8 % (0.0-2.0); EOSINOPHILS % (AUTO) 0.8 % (0.0-3.0); LYMPHOCYTES % (AUTO) 33.8 % (20.0-45.0); MEAN CORPUSCULAR HEMOGLOBIN 29.7 PG (27.0-31.0); MEAN CORPUSCULAR HGB CONC 34.4 G/DL (32.0-36.0); MEAN CORPUSCULAR VOLUME 86 FL (80-99); MONOCYTES % (AUTO) 9.5 % (1.0-10.0); NEUTROPHILS % (AUTO) 55.1 % (45.0-75.0); PLATELET COUNT 239 K/UL (150-450); RED BLOOD COUNT 4.49 M/UL (4.70-6.10); RED CELL DISTRIBUTION WIDTH 12.9 % (11.6-14.8); WHITE BLOOD COUNT 8.8 K/UL (4.8-10.8)
[2016-10-15 08:00] VITALS: BP 143/87
[2016-10-15 08:43] LABS: CALCIUM 9.1 mg/dL (8.6-10.2); CREATININE 1.3 mg/dL (0.7-1.2); GLOMERULAR FILTRATION RATE 56.5 mL/min (>60); POTASSIUM 3.7 mEQ/L (3.4-4.9)
--- NOTE | 2016-10-15 08:59 | General Progress Note ---
Assessment/Plan Problem List: (1) Cellulitis of right lower extremity ICD Codes: L03.115 - Cellulitis of right lower limb SNOMED: 323459076 (2) Cellulitis of left leg ICD Codes: L03.116 - Cellulitis of left lower limb SNOMED: 755695449 (3) Hypoxemia ICD Codes: R09.02 - Hypoxemia SNOMED: 468611941 (4) Hyponatremia ICD Codes: E87.1 - Hypo-osmolality and hyponatremia SNOMED: 63188053 (5) Schizo-affective schizophrenia, chronic condition with acute exacerbation ICD Codes: F25.8 - Other schizoaffective disorders SNOMED: 567997029 Status: stable, progressing, tolerating diet Assessment/Plan ot pt diet wound care abx cbc bmp am ltach eval neph bahmani Subjective Constitutional: Reports: weakness Allergies: Coded Allergies: CHLORPROMAZINE (Verified Allergy, Unknown, 10/13/16) HALOPERIDOL (Verified Allergy, Unknown, 10/13/16) PENICILLINS (Unverified Allergy, Unknown, 10/13/16) ZIPRASIDONE (Verified Allergy, Unknown, 10/13/16) All Systems: reviewed and negative except above Subjective sitting calm Objective Last 24 Hour Vital Signs Date Time Temp Pulse Resp B/P (MAP) Pulse Ox O2 Delivery O2 Flow Rate FiO2 10/15/16 08:00 97.2 98 20 143/87 98 Room Air 10/15/16 04:00 97.6 77 20 134/88 100 Room Air 10/15/16 00:00 97.8 82 21 139/90 100 Room Air 10/14/16 20:00 98.8 71 20 115/69 94 Room Air 10/14/16 16:00 98.8 98 20 157/96 98 Room Air Laboratory Tests 10/15/16 05:00: White Blood Count 8.8, Red Blood Count 4.49L, Hemoglobin 13.4L, Hematocrit 38.8L , Mean Corpuscular Volume 86, Mean Corpuscular Hemoglobin 29.7, Mean Corpuscular Hemoglobin Concent 34.4, Red Cell Distribution Width 12.9, Platelet Count 239, Mean Platelet Volume 8.0, Neutrophils (%) (Auto) 55.1, Lymphocytes (% ) (Auto) 33.8, Monocytes (%) (Auto) 9.5, Eosinophils (%) (Auto) 0.8, Basophils ( %) (Auto) 0.8, Sodium Level 137, Potassium Level 3.7, Chloride Level 98, Carbon Dioxide Level 24, Anion Gap 15, Blood Urea Nitrogen 17, Creatinine 1.3H, Estimat Glomerular Filtration Rate 56.5, Glucose Level 94, Calcium Level 9.1 Height (Feet): 6 Height (Inches): 1.00 Weight (Pounds): 276 General Appearance: lethargic EENT: normal ENT inspection Neck: normal alignment Cardiovascular: normal peripheral pulses, normal rate, regular rhythm Respiratory/Chest: chest wall non-tender, lungs clear, normal breath sounds Abdomen: normal bowel sounds, non tender, soft Extremities: normal inspection Edema: 1+ Arm (L), 1+ Arm (R), 1+ Leg (L), 1+ Leg (R), 1+ Pedal (L), 1+ Pedal ( R), 1+ Generalized Neurologic: motor weakness Skin: normal pigmentation, warm/dry Objective bl le redness CARLOS BUTLER Oct 15, 2016 08:59
[2016-10-15] MEDS: Doxazosin 4mg tab ORAL SCH (09:01)
[2016-10-15] MEDS: Docusate 100mg cap ORAL SCH (09:01)
[2016-10-15] MEDS: Lisinopril 2.5mg tab ORAL SCH (09:01)
[2016-10-15] MEDS: Heparin 5000 units/ml inj SUBQ SCH ×2 (09:03→20:17)
[2016-10-15 12:00] VITALS: BP 138/95
--- NOTE | 2016-10-15 13:49 | Pulmonology Progress Note ---
Assessment/Plan Assessment/Plan ASSESSMENT cellulitis BLE hypoxemia acute hypoNa schizoaffective disorder elevated creat PLAN OF CARE MS floor abx ID follows O2 HHN prn pulse ox stable on RA CXR with left base atelectasis Venous Duplex BLE negative DVT prophylaxis pain management PT/OT psych follows, optimized medication regimen, continue current Rx due to elevated creat give 500 cc NS Na stable case discussed and evaluated by supervising physician Subjective Allergies: Coded Allergies: CHLORPROMAZINE (Verified Allergy, Unknown, 10/13/16) HALOPERIDOL (Verified Allergy, Unknown, 10/13/16) PENICILLINS (Unverified Allergy, Unknown, 10/13/16) ZIPRASIDONE (Verified Allergy, Unknown, 10/13/16) Subjective patient pleasant and happy today after psych medication regimen optimized pulse ox stable on RA, no signs of respiratory distress Na up to normal creat-1.3 today Objective Last 24 Hour Vital Signs Date Time Temp Pulse Resp B/P (MAP) Pulse Ox O2 Delivery O2 Flow Rate FiO2 10/15/16 12:00 98.1 83 20 138/95 98 Room Air 10/15/16 09:01 143/87 10/15/16 08:00 97.2 98 20 143/87 98 Room Air 10/15/16 04:00 97.6 77 20 134/88 100 Room Air 10/15/16 00:00 97.8 82 21 139/90 100 Room Air 10/14/16 20:00 98.8 71 20 115/69 94 Room Air 10/14/16 16:00 98.8 98 20 157/96 98 Room Air Intake and Output 10/15/16 10/16/16 19:00 07:00 # Bowel Movements 1 Objective General Appearance: no acute distress, awake alert, obese male HEENT: normocephalic, atraumatic, anicteric Respiratory/Chest: lungs clear with moderate air entry , no respiratory distress, no accessory muscle use Cardiovascular: normal rate, regular rhythm, no JVD Abdomen: normal bowel sounds, soft, non tender, non distended Extremities: BLE with edema +2 and erythema Neurologic/Psychiatric: alert, awake, responsive, mood stable Musculoskeletal: normal muscle bulk Microbiology Date/Time Source Procedure Growth Status 10/13/16 15:50 Blood Blood Culture - Preliminary NO GROWTH AFTER 24 HOURS Resulted 10/13/16 15:30 Blood Blood Culture - Preliminary NO GROWTH AFTER 24 HOURS Resulted 10/13/16 16:15 Nasal Nares MRSA Culture - Final Staphylococcus Aureus - Mrsa Complete 10/13/16 16:15 Rectum VRE Culture - Final NO VANCOMYCIN RESISTANT ENTEROCOCCUS ... Complete Laboratory Tests 10/15/16 05:00: White Blood Count 8.8, Red Blood Count 4.49L, Hemoglobin 13.4L, Hematocrit 38.8L , Mean Corpuscular Volume 86, Mean Corpuscular Hemoglobin 29.7, Mean Corpuscular Hemoglobin Concent 34.4, Red Cell Distribution Width 12.9, Platelet Count 239, Mean Platelet Volume 8.0, Neutrophils (%) (Auto) 55.1, Lymphocytes (% ) (Auto) 33.8, Monocytes (%) (Auto) 9.5, Eosinophils (%) (Auto) 0.8, Basophils ( %) (Auto) 0.8, Sodium Level 137, Potassium Level 3.7, Chloride Level 98, Carbon Dioxide Level 24, Anion Gap 15, Blood Urea Nitrogen 17, Creatinine 1.3H, Estimat Glomerular Filtration Rate 56.5, Glucose Level 94, Calcium Level 9.1 Current Medications Medications (Trade) Dose Ordered Sig/Calvin Route PRN Reason Start Time Stop Time Status Last Admin Dose Admin Acetaminophen (Tylenol) 650 mg Q4H PRN ORAL fever 10/13/16 15:15 11/12/16 15:14 Albuterol/ Ipratropium (DuoNeb 0.5-3(2.5)mg/3ml) 3 ml Q4H PRN HHN Shortness of Breath 10/13/16 15:15 10/18/16 15:14 Atorvastatin Calcium (Lipitor) 20 mg BEDTIME ORAL 10/14/16 21:00 11/13/16 20:59 10/14/16 20:27 Bisacodyl (Dulcolax) 10 mg DAILYPRN PRN RECTAL Constipation 10/14/16 19:00 11/13/16 18:59 Clindamycin HCl (Cleocin) 450 mg EVERY 6 HOURS ORAL 10/14/16 18:00 10/21/16 17:59 10/15/16 12:30 Clonidine HCl (Catapres) 0.1 mg Q4H PRN ORAL SBP > 160 10/13/16 15:15 11/12/16 15:14 Dextrose (Dextrose 50%) STAT PRN IV Hypoglycemia 10/13/16 15:15 11/12/16 15:14 Diazepam (Valium) 10 mg Q8HR PRN ORAL For Anxiety 10/14/16 19:00 10/21/16 18:59 Diphenhydramine HCl (Benadryl) 25 mg Q6H PRN ORAL Itching 10/14/16 19:00 11/13/16 18:59 Divalproex Sodium (Depakote ER) 500 mg BEDTIME ORAL 10/14/16 21:00 11/13/16 20:59 10/14/16 20:27 Docusate Sodium (Colace) 100 mg DAILY ORAL 10/15/16 09:00 11/14/16 08:59 10/15/16 09:01 Doxazosin Mesylate (Cardura) 8 mg DAILY ORAL 10/15/16 09:00 11/14/16 08:59 10/15/16 09:01 Finasteride (Proscar) 5 mg DAILY ORAL 10/15/16 09:00 11/14/16 08:59 10/15/16 09:01 Heparin Sodium (Porcine) (Heparin 5000 units/ml) 5,000 units EVERY 12 HOURS SUBQ 10/13/16 21:00 11/12/16 20:59 10/15/16 09:03 Ibuprofen (Motrin) 600 mg Q6H PRN ORAL For Pain 10/14/16 19:00 11/13/16 18:59 Levofloxacin (Levaquin) 750 mg Q24H ORAL 10/13/16 20:00 10/20/16 19:59 10/14/16 20:27 Levothyroxine Sodium (Synthroid) 50 mcg DAILY@0630 ORAL 10/15/16 06:30 11/14/16 06:29 10/15/16 06:26 Lisinopril (Zestril) 2.5 mg DAILY ORAL 10/15/16 09:00 11/14/16 08:59 10/15/16 09:01 Morphine Sulfate (Morphine Sulfate) 2 mg Q4H PRN IVP Moderate Pain (Pain Scale 4-6) 10/13/16 15:15 10/20/16 15:14 Nitroglycerin (Ntg) 0.4 mg Every 5 Minutes PRN SL Prn Chest Pain 9/7/17 15:15 11/12/16 15:14 Ondansetron HCl (Zofran) 4 mg Q6H PRN IVP Nausea & Vomiting 10/13/16 15:15 11/12/16 15:14 Polyethylene Glycol (Miralax) 17 gm DAILYPRN PRN ORAL Constipation 10/13/16 15:15 11/12/16 15:14 Risperidone (RisperDAL) 2 mg BEDTIME ORAL 10/14/16 21:00 11/13/16 20:59 10/14/16 20:27 Temazepam (Restoril) 15 mg HSPRN PRN ORAL Insomnia 10/13/16 15:15 10/20/16 15:14 10/13/16 21:39 Temazepam (Restoril) 15 mg HSPRN PRN ORAL Insomnia 10/14/16 19:00 10/21/16 18:59 Livan FonsecaAdirondack Medical CenterRoberta Sahu NP Oct 15, 2016 13:49
[2016-10-15 16:00] VITALS: BP 104/81
--- NOTE | 2016-10-15 16:39 | Infectious Diseases Prog Note ---
Assessment/Plan Problems: (1) Cellulitis of right lower extremity Assessment & Plan: was on vancomycin and cefepime , but he refused to take any more IV, was switched to clindamycin and levaquin, await blood culture , will treat for 14 days (2) Hyponatremia Assessment & Plan: dehydration related, monitor sodium level (3) Hypoxemia Assessment & Plan: pulmonogist is following (4) MRSA colonization Assessment & Plan: will start bactroban for five days to decolonize him Subjective ROS Limited/Unobtainable: Yes Allergies: Coded Allergies: CHLORPROMAZINE (Verified Allergy, Unknown, 10/13/16) HALOPERIDOL (Verified Allergy, Unknown, 10/13/16) PENICILLINS (Unverified Allergy, Unknown, 10/13/16) ZIPRASIDONE (Verified Allergy, Unknown, 10/13/16) Objective Vital Signs Last 24 Hour Vital Signs Date Time Temp Pulse Resp B/P (MAP) Pulse Ox O2 Delivery O2 Flow Rate FiO2 10/15/16 16:00 97.2 92 20 104/81 95 Room Air 10/15/16 12:00 98.1 83 20 138/95 98 Room Air 10/15/16 09:01 143/87 10/15/16 08:00 97.2 98 20 143/87 98 Room Air 10/15/16 04:00 97.6 77 20 134/88 100 Room Air 10/15/16 00:00 97.8 82 21 139/90 100 Room Air 10/14/16 20:00 98.8 71 20 115/69 94 Room Air Height (Feet): 6 Height (Inches): 1.00 Weight (Pounds): 276 General Appearance: WD/WN, no acute distress HEENT: normocephalic, atraumatic, anicteric, mucous membranes moist Respiratory/Chest: chest wall non-tender, lungs clear, normal breath sounds, no respiratory distress Cardiovascular: normal peripheral pulses, normal rate, regular rhythm Abdomen: normal bowel sounds, soft, non tender, no organomegaly, non distended Extremities: no cyanosis, no clubbing Skin: no rash, lesions, ulcers Microbiology Date/Time Source Procedure Growth Status 10/13/16 15:50 Blood Blood Culture - Preliminary NO GROWTH AFTER 24 HOURS Resulted 10/13/16 15:30 Blood Blood Culture - Preliminary NO GROWTH AFTER 24 HOURS Resulted 10/13/16 16:15 Nasal Nares MRSA Culture - Final Staphylococcus Aureus - Mrsa Complete 10/13/16 16:15 Rectum VRE Culture - Final NO VANCOMYCIN RESISTANT ENTEROCOCCUS ... Complete Laboratory Tests Test 10/15/16 05:00 White Blood Count 8.8 K/UL (4.8-10.8) Red Blood Count 4.49 M/UL (4.70-6.10) L Hemoglobin 13.4 G/DL (14.2-18.0) L Hematocrit 38.8 % (42.0-52.0) L Mean Corpuscular Volume 86 FL (80-99) Mean Corpuscular Hemoglobin 29.7 PG (27.0-31.0) Mean Corpuscular Hemoglobin Concent 34.4 G/DL (32.0-36.0) Red Cell Distribution Width 12.9 % (11.6-14.8) Platelet Count 239 K/UL (150-450) Mean Platelet Volume 8.0 FL (6.5-10.1) Neutrophils (%) (Auto) 55.1 % (45.0-75.0) Lymphocytes (%) (Auto) 33.8 % (20.0-45.0) Monocytes (%) (Auto) 9.5 % (1.0-10.0) Eosinophils (%) (Auto) 0.8 % (0.0-3.0) Basophils (%) (Auto) 0.8 % (0.0-2.0) Sodium Level 137 mEQ/L (135-145) Potassium Level 3.7 mEQ/L (3.4-4.9) Chloride Level 98 mEQ/L (98-107) Carbon Dioxide Level 24 mEQ/L (20-30) Anion Gap 15 (5-15) Blood Urea Nitrogen 17 mg/dL (7-23) Creatinine 1.3 mg/dL (0.7-1.2) H Estimat Glomerular Filtration Rate 56.5 mL/min (>60) Glucose Level 94 mg/dL (74-106) Calcium Level 9.1 mg/dL (8.6-10.2) Current Medications Medications (Trade) Dose Ordered Sig/Calvin Route PRN Reason Start Time Stop Time Status Last Admin Dose Admin Acetaminophen (Tylenol) 650 mg Q4H PRN ORAL fever 10/13/16 15:15 11/12/16 15:14 Albuterol/ Ipratropium (DuoNeb 0.5-3(2.5)mg/3ml) 3 ml Q4H PRN HHN Shortness of Breath 10/13/16 15:15 10/18/16 15:14 Atorvastatin Calcium (Lipitor) 20 mg BEDTIME ORAL 10/14/16 21:00 11/13/16 20:59 10/14/16 20:27 Bisacodyl (Dulcolax) 10 mg DAILYPRN PRN RECTAL Constipation 10/14/16 19:00 11/13/16 18:59 Clindamycin HCl (Cleocin) 450 mg EVERY 6 HOURS ORAL 10/14/16 18:00 10/21/16 17:59 10/15/16 12:30 Clonidine HCl (Catapres) 0.1 mg Q4H PRN ORAL SBP > 160 10/13/16 15:15 11/12/16 15:14 Dextrose (Dextrose 50%) STAT PRN IV Hypoglycemia 10/13/16 15:15 11/12/16 15:14 Diazepam (Valium) 10 mg Q8HR PRN ORAL For Anxiety 10/14/16 19:00 10/21/16 18:59 Diphenhydramine HCl (Benadryl) 25 mg Q6H PRN ORAL Itching 10/14/16 19:00 11/13/16 18:59 Divalproex Sodium (Depakote ER) 500 mg BEDTIME ORAL 10/14/16 21:00 11/13/16 20:59 10/14/16 20:27 Docusate Sodium (Colace) 100 mg DAILY ORAL 10/15/16 09:00 11/14/16 08:59 10/15/16 09:01 Doxazosin Mesylate (Cardura) 8 mg DAILY ORAL 10/15/16 09:00 11/14/16 08:59 10/15/16 09:01 Finasteride (Proscar) 5 mg DAILY ORAL 10/15/16 09:00 11/14/16 08:59 10/15/16 09:01 Heparin Sodium (Porcine) (Heparin 5000 units/ml) 5,000 units EVERY 12 HOURS SUBQ 10/13/16 21:00 11/12/16 20:59 10/15/16 09:03 Ibuprofen (Motrin) 600 mg Q6H PRN ORAL For Pain 10/14/16 19:00 11/13/16 18:59 Levofloxacin (Levaquin) 750 mg Q24H ORAL 10/13/16 20:00 10/20/16 19:59 10/14/16 20:27 Levothyroxine Sodium (Synthroid) 50 mcg DAILY@0630 ORAL 10/15/16 06:30 11/14/16 06:29 10/15/16 06:26 Lisinopril (Zestril) 2.5 mg DAILY ORAL 10/15/16 09:00 11/14/16 08:59 10/15/16 09:01 Morphine Sulfate (Morphine Sulfate) 2 mg Q4H PRN IVP Moderate Pain (Pain Scale 4-6) 10/13/16 15:15 10/20/16 15:14 Mupirocin (Bactroban Oint) 1 applic THREE TIMES A DAY TOPIC 10/15/16 18:00 10/20/16 17:59 Nitroglycerin (Ntg) 0.4 mg Every 5 Minutes PRN SL Prn Chest Pain 10/13/16 15:15 11/12/16 15:14 Ondansetron HCl (Zofran) 4 mg Q6H PRN IVP Nausea & Vomiting 10/13/16 15:15 11/12/16 15:14 Polyethylene Glycol (Miralax) 17 gm DAILYPRN PRN ORAL Constipation 10/13/16 15:15 11/12/16 15:14 Risperidone (RisperDAL) 2 mg BEDTIME ORAL 10/14/16 21:00 11/13/16 20:59 10/14/16 20:27 Temazepam (Restoril) 15 mg HSPRN PRN ORAL Insomnia 10/13/16 15:15 10/20/16 15:14 10/13/16 21:39 Nico Cheng M.D. Oct 15, 2016 16:39
[2016-10-15] MEDS: Depakote ER 500mg tab ORAL SCH (20:10)
[2016-10-15] MEDS: Atorvastatin 20mg tab ORAL SCH (20:10)
[2016-10-15 20:23] VITALS: BP 122/84
--- NOTE | 2016-10-15 21:45 | Progress Note ---
DATE: 10/15/2016 SUBJECTIVE: The patient slightly improved. Less agitated. More cooperative and pleasant. No aggressive behaviors. Compliant. MENTAL STATUS EXAMINATION: Alert and oriented times self, place, and situation he is in. Mood is improved and less agitated. Affect is flat. Congruent with mood. Thought process, there is a paucity of thought content. Thought content, no suicidal or homicidal ideations. ASSESSMENT: Schizoaffective disorder. PLAN: We will continue to follow and readjust the medications. Tammie Thomas M.D. DR: STEVEN JOB#: [id number] CC:
[2016-10-16 00:16] VITALS: BP 135/85
[2016-10-16 04:30] VITALS: BP 130/81
--- NOTE | 2016-10-16 05:15 | Progress Note ---
DATE: 10/15/2016 SUBJECTIVE: This is a 61-year-old patient with cellulitis, confused, disorganized, altered mental status, effectively treated with medications . History of agitation, irritability, and impulse control problems. PLAN: To continue treating with medications October 15 through the . He was seen and assessed at bedside. Chart was reviewed and discussed with staff. Lucille Ramires M.D. DR: Mary JOB#: [id number] CC:
[2016-10-16] MEDS: Clindamycin 150mg cap ORAL SCH ×4 (05:37→23:45)
[2016-10-16 07:22] LABS: BASOPHILS % (AUTO) 0.6 % (0.0-2.0); EOSINOPHILS % (AUTO) 0.8 % (0.0-3.0); LYMPHOCYTES % (AUTO) 22.9 % (20.0-45.0); MEAN CORPUSCULAR HEMOGLOBIN 29.1 PG (27.0-31.0); MEAN CORPUSCULAR HGB CONC 33.5 G/DL (32.0-36.0); MEAN CORPUSCULAR VOLUME 87 FL (80-99); MEAN PLATELET VOLUME 7.6 FL (6.5-10.1); NEUTROPHILS % (AUTO) 68.7 % (45.0-75.0); PLATELET COUNT 242 K/UL (150-450); RED BLOOD COUNT 4.79 M/UL (4.70-6.10); RED CELL DISTRIBUTION WIDTH 13.1 % (11.6-14.8); WHITE BLOOD COUNT 9.6 K/UL (4.8-10.8)
[2016-10-16 07:46] LABS: ANION GAP 14 (5-15); CALCIUM 9.5 mg/dL (8.6-10.2); CARBON DIOXIDE 25 mEQ/L (20-30); CHLORIDE 99 mEQ/L (98-107); CREATININE 1.2 mg/dL (0.7-1.2); GLOMERULAR FILTRATION RATE > 60 mL/min (>60); HEMOLYSIS 3; POTASSIUM 4.5 mEQ/L (3.4-4.9); SODIUM 138 mEQ/L (135-145)
--- NOTE | 2016-10-16 08:03 | General Progress Note ---
Assessment/Plan Problem List: (1) Cellulitis of right lower extremity ICD Codes: L03.115 - Cellulitis of right lower limb SNOMED: 021647826 (2) Cellulitis of left leg ICD Codes: L03.116 - Cellulitis of left lower limb SNOMED: 429134180 (3) Hypoxemia ICD Codes: R09.02 - Hypoxemia SNOMED: 304550549 (4) Hyponatremia ICD Codes: E87.1 - Hypo-osmolality and hyponatremia SNOMED: 08810616 (5) Schizo-affective schizophrenia, chronic condition with acute exacerbation ICD Codes: F25.8 - Other schizoaffective disorders SNOMED: 126949586 Status: stable, progressing, tolerating diet Assessment/Plan ot pt diet wound care abx cbc bmp am ltach transfer Subjective Constitutional: Reports: weakness Allergies: Coded Allergies: CHLORPROMAZINE (Verified Allergy, Unknown, 10/13/16) HALOPERIDOL (Verified Allergy, Unknown, 10/13/16) PENICILLINS (Unverified Allergy, Unknown, 10/13/16) ZIPRASIDONE (Verified Allergy, Unknown, 10/13/16) All Systems: reviewed and negative except above Subjective sitting calm Objective Last 24 Hour Vital Signs Date Time Temp Pulse Resp B/P (MAP) Pulse Ox O2 Delivery O2 Flow Rate FiO2 10/16/16 04:30 98.7 92 20 130/81 96 Room Air 10/16/16 00:16 98.7 88 20 135/85 97 Room Air 10/15/16 20:23 99.0 101 21 122/84 96 Room Air 10/15/16 16:00 97.2 92 20 104/81 95 Room Air 10/15/16 12:00 98.1 83 20 138/95 98 Room Air 10/15/16 09:01 143/87 Laboratory Tests 10/16/16 05:50: White Blood Count 9.6, Red Blood Count 4.79, Hemoglobin 13.9L, Hematocrit 41.5L , Mean Corpuscular Volume 87, Mean Corpuscular Hemoglobin 29.1, Mean Corpuscular Hemoglobin Concent 33.5, Red Cell Distribution Width 13.1, Platelet Count 242, Mean Platelet Volume 7.6, Neutrophils (%) (Auto) 68.7, Lymphocytes (% ) (Auto) 22.9, Monocytes (%) (Auto) 7.0, Eosinophils (%) (Auto) 0.8, Basophils ( %) (Auto) 0.6, Sodium Level 138, Potassium Level 4.5, Chloride Level 99, Carbon Dioxide Level 25, Anion Gap 14, Blood Urea Nitrogen 13, Creatinine 1.2, Estimat Glomerular Filtration Rate > 60, Glucose Level 108H, Calcium Level 9.5 Height (Feet): 6 Height (Inches): 1.00 Weight (Pounds): 276 General Appearance: lethargic EENT: normal ENT inspection Neck: normal alignment Cardiovascular: normal peripheral pulses, normal rate, regular rhythm Respiratory/Chest: chest wall non-tender, lungs clear, normal breath sounds Abdomen: normal bowel sounds, non tender, soft Extremities: normal inspection Edema: 1+ Arm (L), 1+ Arm (R), 1+ Leg (L), 1+ Leg (R), 1+ Pedal (L), 1+ Pedal ( R), 1+ Generalized Neurologic: responsive, motor weakness Skin: normal pigmentation, warm/dry Objective bl le redness CARLOS BUTLER Oct 16, 2016 08:03
[2016-10-16 08:05] VITALS: BP 124/88
[2016-10-16] MEDS: Docusate 100mg cap ORAL SCH (08:13)
[2016-10-16] MEDS: Heparin 5000 units/ml inj SUBQ SCH ×2 (08:15→20:37)
[2016-10-16] MEDS: Lisinopril 2.5mg tab ORAL SCH (08:16)
[2016-10-16] MEDS: Doxazosin 4mg tab ORAL SCH (08:16)
[2016-10-16] MEDS ORDERED: NS 550ML IV ONE (09:08)
--- NOTE | 2016-10-16 11:10 | Pulmonology Progress Note ---
Assessment/Plan Assessment/Plan ASSESSMENT cellulitis BLE hypoxemia acute hypoNa schizoaffective disorder elevated creat PLAN OF CARE MS floor abx ID follows O2 HHN prn pulse ox stable on RA CXR with left base atelectasis Venous Duplex BLE negative DVT prophylaxis pain management PT/OT psych follows, optimized medication regimen, continue current Rx creat down to 1.2 after bolus of 500 cc NS Na up to normal case discussed and evaluated by supervising physician Subjective Allergies: Coded Allergies: CHLORPROMAZINE (Verified Allergy, Unknown, 10/13/16) HALOPERIDOL (Verified Allergy, Unknown, 10/13/16) PENICILLINS (Unverified Allergy, Unknown, 10/13/16) ZIPRASIDONE (Verified Allergy, Unknown, 10/13/16) Subjective patient pleasant pulse ox stable on RA, no signs of respiratory distress Na up to normal Objective Last 24 Hour Vital Signs Date Time Temp Pulse Resp B/P (MAP) Pulse Ox O2 Delivery O2 Flow Rate FiO2 10/16/16 09:17 99 17 Room Air 10/16/16 08:16 124/88 10/16/16 08:05 98.0 99 19 124/88 95 Room Air 10/16/16 04:30 98.7 92 20 130/81 96 Room Air 10/16/16 00:16 98.7 88 20 135/85 97 Room Air 10/15/16 20:23 99.0 101 21 122/84 96 Room Air 10/15/16 16:00 97.2 92 20 104/81 95 Room Air 10/15/16 12:00 98.1 83 20 138/95 98 Room Air Intake and Output 10/16/16 10/17/16 19:00 07:00 # Bowel Movements 1 Objective General Appearance: no acute distress, awake alert, obese male HEENT: normocephalic, atraumatic, anicteric Respiratory/Chest: lungs clear with moderate air entry , no respiratory distress, no accessory muscle use Cardiovascular: normal rate, regular rhythm, no JVD Abdomen: normal bowel sounds, soft, non tender, non distended Extremities: BLE with edema +2 and erythema Neurologic/Psychiatric: alert, awake, responsive, mood stable Musculoskeletal: normal muscle bulk Microbiology Date/Time Source Procedure Growth Status 10/13/16 15:50 Blood Blood Culture - Preliminary NO GROWTH AFTER 48 HOURS Resulted 10/13/16 15:30 Blood Blood Culture - Preliminary NO GROWTH AFTER 48 HOURS Resulted 10/13/16 16:15 Nasal Nares MRSA Culture - Final Staphylococcus Aureus - Mrsa Complete 10/13/16 16:15 Rectum VRE Culture - Final NO VANCOMYCIN RESISTANT ENTEROCOCCUS ... Complete Laboratory Tests 10/16/16 05:50: White Blood Count 9.6, Red Blood Count 4.79, Hemoglobin 13.9L, Hematocrit 41.5L , Mean Corpuscular Volume 87, Mean Corpuscular Hemoglobin 29.1, Mean Corpuscular Hemoglobin Concent 33.5, Red Cell Distribution Width 13.1, Platelet Count 242, Mean Platelet Volume 7.6, Neutrophils (%) (Auto) 68.7, Lymphocytes (% ) (Auto) 22.9, Monocytes (%) (Auto) 7.0, Eosinophils (%) (Auto) 0.8, Basophils ( %) (Auto) 0.6, Sodium Level 138, Potassium Level 4.5, Chloride Level 99, Carbon Dioxide Level 25, Anion Gap 14, Blood Urea Nitrogen 13, Creatinine 1.2, Estimat Glomerular Filtration Rate > 60, Glucose Level 108H, Calcium Level 9.5 Current Medications Medications (Trade) Dose Ordered Sig/Calvin Route PRN Reason Start Time Stop Time Status Last Admin Dose Admin Acetaminophen (Tylenol) 650 mg Q4H PRN ORAL fever 10/13/16 15:15 11/12/16 15:14 Albuterol/ Ipratropium (DuoNeb 0.5-3(2.5)mg/3ml) 3 ml Q4H PRN HHN Shortness of Breath 10/13/16 15:15 10/18/16 15:14 Atorvastatin Calcium (Lipitor) 20 mg BEDTIME ORAL 10/14/16 21:00 11/13/16 20:59 10/15/16 20:10 Bisacodyl (Dulcolax) 10 mg DAILYPRN PRN RECTAL Constipation 10/14/16 19:00 11/13/16 18:59 Clindamycin HCl (Cleocin) 450 mg EVERY 6 HOURS ORAL 10/14/16 18:00 10/21/16 17:59 10/16/16 05:37 Clonidine HCl (Catapres) 0.1 mg Q4H PRN ORAL SBP > 160 10/13/16 15:15 11/12/16 15:14 Dextrose (Dextrose 50%) STAT PRN IV Hypoglycemia 10/13/16 15:15 11/12/16 15:14 Diazepam (Valium) 10 mg Q8HR PRN ORAL For Anxiety 10/14/16 19:00 10/21/16 18:59 10/16/16 10:39 Diphenhydramine HCl (Benadryl) 25 mg Q6H PRN ORAL Itching 10/14/16 19:00 11/13/16 18:59 Divalproex Sodium (Depakote ER) 500 mg BEDTIME ORAL 10/14/16 21:00 11/13/16 20:59 10/15/16 20:10 Docusate Sodium (Colace) 100 mg DAILY ORAL 10/15/16 09:00 11/14/16 08:59 10/16/16 08:13 Doxazosin Mesylate (Cardura) 8 mg DAILY ORAL 10/15/16 09:00 11/14/16 08:59 10/16/16 08:16 Finasteride (Proscar) 5 mg DAILY ORAL 10/15/16 09:00 11/14/16 08:59 10/16/16 08:13 Heparin Sodium (Porcine) (Heparin 5000 units/ml) 5,000 units EVERY 12 HOURS SUBQ 10/13/16 21:00 11/12/16 20:59 10/16/16 08:15 Ibuprofen (Motrin) 600 mg Q6H PRN ORAL For Pain 10/14/16 19:00 11/13/16 18:59 Levofloxacin (Levaquin) 750 mg Q24H ORAL 10/13/16 20:00 10/20/16 19:59 10/15/16 20:09 Levothyroxine Sodium (Synthroid) 50 mcg DAILY@0630 ORAL 10/15/16 06:30 11/14/16 06:29 10/16/16 05:37 Lisinopril (Zestril) 2.5 mg DAILY ORAL 10/15/16 09:00 11/14/16 08:59 10/16/16 08:16 Morphine Sulfate (Morphine Sulfate) 2 mg Q4H PRN IVP Moderate Pain (Pain Scale 4-6) 10/13/16 15:15 10/20/16 15:14 Mupirocin (Bactroban Oint) 1 applic THREE TIMES A DAY TOPIC 10/15/16 18:00 10/20/16 17:59 10/16/16 08:13 Nitroglycerin (Ntg) 0.4 mg Every 5 Minutes PRN SL Prn Chest Pain 10/13/16 15:15 11/12/16 15:14 Ondansetron HCl (Zofran) 4 mg Q6H PRN IVP Nausea & Vomiting 10/13/16 15:15 11/12/16 15:14 Polyethylene Glycol (Miralax) 17 gm DAILYPRN PRN ORAL Constipation 10/13/16 15:15 11/12/16 15:14 Risperidone (RisperDAL) 2 mg BEDTIME ORAL 10/14/16 21:00 11/13/16 20:59 10/15/16 20:10 Temazepam (Restoril) 15 mg HSPRN PRN ORAL Insomnia 10/13/16 15:15 10/20/16 15:14 10/15/16 23:39 Livan FonsecaMount Sinai HospitalRoberta Sahu NP Oct 16, 2016 11:10
[2016-10-16 11:35] VITALS: BP 121/62
--- NOTE | 2016-10-16 11:36 | General Progress Note ---
Progress Note Progress Note [id number] full note dictated DULCE MARIA MAZA Oct 16, 2016 11:36
[2016-10-16 16:02] VITALS: BP 122/62
[2016-10-16 16:27] LABS: APPEARANCE,URINE CLEAR; KETONES,URINE NEGATIVE (NEGATIVE); LEUKOCYTE ESTERASE ,URINE 1+ (NEGATIVE); NITRITE,URINE NEGATIVE (NEGATIVE); PH,URINE 7 (4.5-8.0); PROTEIN,URINE 1+ (NEGATIVE); UROBILINOGEN,URINE NORMAL MG/DL (0.0-1.0)
[2016-10-16 17:28] LABS: RBC,URINE 0-2 /HPF (0 - 0); WBC,URINE 0-2 /HPF (0 - 0)
[2016-10-16 17:29] LABS: BACTERIA,URINE FEW /HPF
[2016-10-16 20:00] VITALS: BP 119/72
[2016-10-16] MEDS: Atorvastatin 20mg tab ORAL SCH (20:37)
[2016-10-16] MEDS: Depakote ER 500mg tab ORAL SCH (20:37)
--- NOTE | 2016-10-16 22:15 | Consultation ---
DATE OF CONSULTATION: 10/16/2016 NEPHROLOGY CONSULTATION CONSULTING PHYSICIAN: Omaira Martinez M.D. REFERRING PHYSICIAN: Severino Bills D.O. REASON FOR CONSULTATION: Acute renal failure versus chronic kidney disease and abnormal electrolytes. HISTORY OF PRESENT ILLNESS: The patient is an unfortunate 61-year-old male with past medical history significant for history of autism, history of psychiatric disease with schizophrenia, hypothyroidism, and hypertension. He presented, was sent from nursing facility to [facility] for fluid overload, O2 saturation of 80%. Also, the patient was found to have bilateral lower extremity edema and redness up to his mid calf. He was found to have an abnormal electrolyte. I was called for management of renal disease and electrolyte imbalance. Unfortunately, the patient is not able to provide meaningful history and he is asking about his belongings. He is asking about the place that he is going to be transferred, but he is not providing appropriate answer to my question. PAST MEDICAL HISTORY: 1. History of schizophrenia. 2. History of Asperger's disorder. 3. History of hypothyroidism. 4. History of autism. PAST SURGICAL HISTORY: None. MEDICATIONS: Reviewed. ALLERGIES: He is allergic to penicillin. SOCIAL HISTORY: He lives at group home. There is no history of tobacco, alcohol, or drug use. FAMILY HISTORY: He denies any family history, not sure about the reliability of the history. REVIEW OF SYSTEMS: Unable to obtain. The patient is not staying focused on his complaint and he denies having any complaint, but obviously, the patient has severe redness and inflammation of both lower extremities. PHYSICAL EXAMINATION: VITAL SIGNS: The patient had temperature of 97 degrees, pulse of 84, respiratory rate of 18, and blood pressure of 140/79. HEAD AND NECK: No JVP. No LAD. No thyromegaly. Poor dentition. Extraocular movements intact. Pupils are reactive to light and accommodation. LUNGS: Clear to auscultation. CARDIAC: Regular rate and rhythm. S1 and S2. No murmur. No rub. ABDOMEN: Obese, nontender, and nondistended. EXTREMITIES: He has redness, swelling, and some skin breakout throughout bilaterally up to his both calves. At this point, it is nontender. NEUROLOGIC: Cranial nerves II to XII within normal limits. LABORATORY VALUES: On admission, the patient has sodium of 129, potassium of 4.9, 94 chloride, 24 bicarbonate, BUN of 14, creatinine of 0.9, and glucose of 89. AST of 27, ALT of 18, and alkaline phosphatase of 231. CBC revealed WBC count of 8.7, hemoglobin of 13, hematocrit of 40, and platelet count of 246,000. There is no UA. The patient had a chest x-ray basically, which was done, which showed bilateral basilar atelectasis, otherwise negative. ASSESSMENT: 1. Hyponatremia, most likely due to antipsychotic medication. 2. Acute renal failure. 3. Bilateral lower extremity cellulitis. 4. Mild elevation of hypertension with questionable fluid overload. PLAN: Plan for the patient is to obtain UA, check the random urine protein and creatinine ratio to calculate the proteinuria, check the urine sodium and creatinine to calculate fractional excretion of sodium. Mix all IV piggyback with normal saline. I would avoid any NSAIDs and nephrotoxics. Replace the electrolytes as needed. At the end, I would like to thank Dr. Severino Bills for allowing me to participate in the care of this patient. Omaira Martinez M.D. DR: Marlen JOB#: [id number] CC:
--- NOTE | 2016-10-16 22:22 | General Progress Note ---
Assessment/Plan Status: stable, progressing Assessment/Plan Schizoaffective d/o bipolar type -cont depakote -cont risperdal Subjective Allergies: Coded Allergies: CHLORPROMAZINE (Verified Allergy, Unknown, 10/13/16) HALOPERIDOL (Verified Allergy, Unknown, 10/13/16) PENICILLINS (Unverified Allergy, Unknown, 10/13/16) ZIPRASIDONE (Verified Allergy, Unknown, 10/13/16) Subjective the pt was pleasant and engage no behavioral issues since I have readjusted the meds. the pt cooperative and he is not confused Objective Last 24 Hour Vital Signs Date Time Temp Pulse Resp B/P (MAP) Pulse Ox O2 Delivery O2 Flow Rate FiO2 10/16/16 20:00 98.0 99 21 119/72 94 Room Air 10/16/16 19:42 102 20 Room Air 10/16/16 16:02 97.9 104 19 122/62 95 Room Air 10/16/16 11:35 97.6 97 19 121/62 95 Room Air 10/16/16 09:17 99 17 Room Air 10/16/16 08:16 124/88 10/16/16 08:05 98.0 99 19 124/88 95 Room Air 10/16/16 04:30 98.7 92 20 130/81 96 Room Air 10/16/16 00:16 98.7 88 20 135/85 97 Room Air Intake and Output 10/16/16 10/17/16 19:00 07:00 Intake Total 650 ml Output Total 700 ml Balance -50 ml Intake Oral 650 ml Output Urine Total 700 ml # Bowel Movements 2 Laboratory Tests 10/16/16 05:50: White Blood Count 9.6, Red Blood Count 4.79, Hemoglobin 13.9L, Hematocrit 41.5L , Mean Corpuscular Volume 87, Mean Corpuscular Hemoglobin 29.1, Mean Corpuscular Hemoglobin Concent 33.5, Red Cell Distribution Width 13.1, Platelet Count 242, Mean Platelet Volume 7.6, Neutrophils (%) (Auto) 68.7, Lymphocytes (% ) (Auto) 22.9, Monocytes (%) (Auto) 7.0, Eosinophils (%) (Auto) 0.8, Basophils ( %) (Auto) 0.6, Sodium Level 138, Potassium Level 4.5, Chloride Level 99, Carbon Dioxide Level 25, Anion Gap 14, Blood Urea Nitrogen 13, Creatinine 1.2, Estimat Glomerular Filtration Rate > 60, Glucose Level 108H, Calcium Level 9.5 10/16/16 16:17: Urine Color Yellow, Urine Appearance Clear, Urine pH 7, Urine Specific [place] 1.010, Urine Protein 1+H, Urine Glucose (UA) Negative, Urine Ketones Negative, Urine Occult Blood Negative, Urine Nitrite Negative, Urine Bilirubin Negative, Urine Urobilinogen Normal, Urine Leukocyte Esterase 1+H, Urine RBC 0-2H, Urine WBC 0-2, Urine Squamous Epithelial Cells None, Urine Bacteria Few, Urine Eosinophils None seen, Urine Random Creatinine [Pending], Urine Random Microalbumin [Pending], Urine Random Total Protein 21, Urine Random Sodium 70, Urine Creatinine 173.3, Urine Microalbumin/Creatinine Ratio [Pending] Height (Feet): 6 Height (Inches): 1.00 Weight (Pounds): 276 General Appearance: no apparent distress, alert, overweight Neurologic: alert, oriented x 3, responsive, normal mood/affect Tammie Thomas M.D. Oct 16, 2016 22:22
[2016-10-17] VITALS: BP 122/79
[2016-10-17] MEDS: Clindamycin 150mg cap ORAL SCH ×3 (05:49→17:41)
--- NOTE | 2016-10-17 06:15 | Progress Note ---
DATE: 10/17/2016 SUBJECTIVE: This is a 61-year-old male patient with cellulitis. He also has altered mental status and agitation. DIAGNOSIS: Paranoid schizophrenia with acute exacerbation. PLAN: I am going to continue treatment with medication to prevent any decline in his cognition, agitation, irritability, and impulse control. Chart was reviewed and discussed with the staff. The patient was seen and assessed at the bedside. Lucille Ramires M.D. DR: EDSON JOB#: [id number] CC:
[2016-10-17 07:36] LABS: BASOPHILS % (AUTO) 0.6 % (0.0-2.0); LYMPHOCYTES % (AUTO) 21.5 % (20.0-45.0); MEAN CORPUSCULAR HEMOGLOBIN 29.4 PG (27.0-31.0); MEAN CORPUSCULAR HGB CONC 34.2 G/DL (32.0-36.0); MEAN CORPUSCULAR VOLUME 86 FL (80-99); MEAN PLATELET VOLUME 7.7 FL (6.5-10.1); MONOCYTES % (AUTO) 6.8 % (1.0-10.0); NEUTROPHILS % (AUTO) 70.1 % (45.0-75.0); PLATELET COUNT 233 K/UL (150-450); RED CELL DISTRIBUTION WIDTH 12.9 % (11.6-14.8); WHITE BLOOD COUNT 8.4 K/UL (4.8-10.8)
[2016-10-17 07:51] LABS: ANION GAP 12 (5-15); CARBON DIOXIDE 24 mEQ/L (20-30); CHLORIDE 99 mEQ/L (98-107); CREATININE 1.1 mg/dL (0.7-1.2); GLOMERULAR FILTRATION RATE > 60 mL/min (>60); HEMOLYSIS 4; SODIUM 135 mEQ/L (135-145)
--- NOTE | 2016-10-17 08:21 | Nephrology Progress Note ---
Assessment/Plan Assessment 1. Hyponatremia, 2. Acute renal failure. 3. Bilateral lower extremity cellulitis. 4. uncontrolled HTN Plan plan to continue iv antibiotic monitoring renal function avoid NSAID replace electrolyte as need it fallow up with urine study Subjective Constitutional: Reports: no symptoms HEENT: Reports: no symptoms Genitourinary: Reports: no symptoms Neurologic/Psychiatric: Reports: no symptoms Subjective alert and awake no complaints Objective Objective Last 24 Hour Vital Signs Date Time Temp Pulse Resp B/P (MAP) Pulse Ox O2 Delivery O2 Flow Rate FiO2 10/17/16 00:00 98.1 96 21 122/79 96 Room Air 10/16/16 20:00 98.0 99 21 119/72 94 Room Air 10/16/16 19:42 102 20 Room Air 10/16/16 16:02 97.9 104 19 122/62 95 Room Air 10/16/16 11:35 97.6 97 19 121/62 95 Room Air 10/16/16 09:17 99 17 Room Air Laboratory Tests 10/16/16 16:17: Urine Color Yellow, Urine Appearance Clear, Urine pH 7, Urine Specific [place] 1.010, Urine Protein 1+H, Urine Glucose (UA) Negative, Urine Ketones Negative, Urine Occult Blood Negative, Urine Nitrite Negative, Urine Bilirubin Negative, Urine Urobilinogen Normal, Urine Leukocyte Esterase 1+H, Urine RBC 0-2H, Urine WBC 0-2, Urine Squamous Epithelial Cells None, Urine Bacteria Few, Urine Eosinophils None seen, Urine Random Creatinine [Pending], Urine Random Microalbumin [Pending], Urine Random Total Protein 21, Urine Random Sodium 70, Urine Creatinine 173.3, Urine Microalbumin/Creatinine Ratio [Pending] 10/17/16 06:15: White Blood Count 8.4, Red Blood Count 4.50L, Hemoglobin 13.3L, Hematocrit 38.8L , Mean Corpuscular Volume 86, Mean Corpuscular Hemoglobin 29.4, Mean Corpuscular Hemoglobin Concent 34.2, Red Cell Distribution Width 12.9, Platelet Count 233, Mean Platelet Volume 7.7, Neutrophils (%) (Auto) 70.1, Lymphocytes (% ) (Auto) 21.5, Monocytes (%) (Auto) 6.8, Eosinophils (%) (Auto) 1.0, Basophils ( %) (Auto) 0.6, Sodium Level 135, Potassium Level 4.0, Chloride Level 99, Carbon Dioxide Level 24, Anion Gap 12, Blood Urea Nitrogen 13, Creatinine 1.1, Estimat Glomerular Filtration Rate > 60, Glucose Level 113H, Calcium Level 9.0 Height (Feet): 6 Height (Inches): 1.00 Weight (Pounds): 276 Objective HEAD AND NECK: No JVP. No LAD. No thyromegaly. Poor dentition. Extraocular movements intact. Pupils are reactive to light and accommodation. LUNGS: Clear to auscultation. CARDIAC: Regular rate and rhythm. S1 and S2. No murmur. No rub. ABDOMEN: Obese, nontender, and nondistended. EXTREMITIES: He has redness, swelling, and some skin breakout throughout bilaterally up to his both calves. At this point, it is nontender. NEUROLOGIC: Cranial nerves II to XII within normal limits. DULCE MARIA MAZA Oct 17, 2016 08:21
[2016-10-17] MEDS: Docusate 100mg cap ORAL SCH (10:05)
[2016-10-17] MEDS: Lisinopril 2.5mg tab ORAL SCH (10:05)
[2016-10-17] MEDS: Doxazosin 4mg tab ORAL SCH (10:05)
[2016-10-17] MEDS: Heparin 5000 units/ml inj SUBQ SCH ×2 (10:07→20:32)
[2016-10-17 12:18] VITALS: BP 109/69
--- NOTE | 2016-10-17 13:35 | General Progress Note ---
Assessment/Plan Assessment/Plan Schizoaffective d/o bipolar type, the pt is still disorganized and the meds need to be readjusted. will sign off as Dr. Ramires started documenting since Monday. Will d/w Dr. Bills Subjective Allergies: Coded Allergies: CHLORPROMAZINE (Verified Allergy, Unknown, 10/13/16) HALOPERIDOL (Verified Allergy, Unknown, 10/13/16) PENICILLINS (Unverified Allergy, Unknown, 10/13/16) ZIPRASIDONE (Verified Allergy, Unknown, 10/13/16) Subjective the pt was pleasant and engage no behavioral issues however he is still responding to internal stimuli. I noted that Dr. Ramires started documenting since Monday on this case. As soon as I received the consult I notified Dr. Bills in [facility] whom stated will notify Dr. Ramires. There were two more consults that I discussed with Dr. Bills. Objective Last 24 Hour Vital Signs Date Time Temp Pulse Resp B/P (MAP) Pulse Ox O2 Delivery O2 Flow Rate FiO2 10/17/16 12:18 97.7 110 22 109/69 97 Room Air 10/17/16 10:05 122/79 10/17/16 07:05 77 20 Room Air 10/17/16 00:00 98.1 96 21 122/79 96 Room Air 10/16/16 20:00 98.0 99 21 119/72 94 Room Air 10/16/16 19:42 102 20 Room Air 10/16/16 16:02 97.9 104 19 122/62 95 Room Air Intake and Output 10/17/16 10/18/16 19:00 07:00 Intake Total 240 ml Balance 240 ml Intake Oral 240 ml Laboratory Tests 10/16/16 16:17: Urine Color Yellow, Urine Appearance Clear, Urine pH 7, Urine Specific [place] 1.010, Urine Protein 1+H, Urine Glucose (UA) Negative, Urine Ketones Negative, Urine Occult Blood Negative, Urine Nitrite Negative, Urine Bilirubin Negative, Urine Urobilinogen Normal, Urine Leukocyte Esterase 1+H, Urine RBC 0-2H, Urine WBC 0-2, Urine Squamous Epithelial Cells None, Urine Bacteria Few, Urine Eosinophils None seen, Urine Random Creatinine [Pending], Urine Random Microalbumin [Pending], Urine Random Total Protein 21, Urine Random Sodium 70, Urine Creatinine 173.3, Urine Microalbumin/Creatinine Ratio [Pending] 10/17/16 06:15: White Blood Count 8.4, Red Blood Count 4.50L, Hemoglobin 13.3L, Hematocrit 38.8L , Mean Corpuscular Volume 86, Mean Corpuscular Hemoglobin 29.4, Mean Corpuscular Hemoglobin Concent 34.2, Red Cell Distribution Width 12.9, Platelet Count 233, Mean Platelet Volume 7.7, Neutrophils (%) (Auto) 70.1, Lymphocytes (% ) (Auto) 21.5, Monocytes (%) (Auto) 6.8, Eosinophils (%) (Auto) 1.0, Basophils ( %) (Auto) 0.6, Sodium Level 135, Potassium Level 4.0, Chloride Level 99, Carbon Dioxide Level 24, Anion Gap 12, Blood Urea Nitrogen 13, Creatinine 1.1, Estimat Glomerular Filtration Rate > 60, Glucose Level 113H, Calcium Level 9.0 Height (Feet): 6 Height (Inches): 1.00 Weight (Pounds): 276 General Appearance: no apparent distress, alert, overweight Neurologic: alert, responsive, normal mood/affect Tammie Thomas M.D. Oct 17, 2016 13:35
--- NOTE | 2016-10-17 13:36 | General Progress Note ---
Assessment/Plan Problem List: (1) Cellulitis of right lower extremity ICD Codes: L03.115 - Cellulitis of right lower limb SNOMED: 404115658 (2) Cellulitis of left leg ICD Codes: L03.116 - Cellulitis of left lower limb SNOMED: 489026384 (3) Hypoxemia ICD Codes: R09.02 - Hypoxemia SNOMED: 411023474 (4) Hyponatremia ICD Codes: E87.1 - Hypo-osmolality and hyponatremia SNOMED: 70798461 (5) Schizo-affective schizophrenia, chronic condition with acute exacerbation ICD Codes: F25.8 - Other schizoaffective disorders SNOMED: 704621996 Status: stable, progressing, tolerating diet Assessment/Plan ot pt diet wound care abx cbc bmp am ltach transfer Subjective Constitutional: Reports: weakness Allergies: Coded Allergies: CHLORPROMAZINE (Verified Allergy, Unknown, 10/13/16) HALOPERIDOL (Verified Allergy, Unknown, 10/13/16) PENICILLINS (Unverified Allergy, Unknown, 10/13/16) ZIPRASIDONE (Verified Allergy, Unknown, 10/13/16) All Systems: reviewed and negative except above Subjective sitting calm Objective Last 24 Hour Vital Signs Date Time Temp Pulse Resp B/P (MAP) Pulse Ox O2 Delivery O2 Flow Rate FiO2 10/17/16 12:18 97.7 110 22 109/69 97 Room Air 10/17/16 10:05 122/79 10/17/16 07:05 77 20 Room Air 10/17/16 00:00 98.1 96 21 122/79 96 Room Air 10/16/16 20:00 98.0 99 21 119/72 94 Room Air 10/16/16 19:42 102 20 Room Air 10/16/16 16:02 97.9 104 19 122/62 95 Room Air Intake and Output 10/17/16 10/18/16 19:00 07:00 Intake Total 240 ml Balance 240 ml Intake Oral 240 ml Laboratory Tests 10/16/16 16:17: Urine Color Yellow, Urine Appearance Clear, Urine pH 7, Urine Specific [place] 1.010, Urine Protein 1+H, Urine Glucose (UA) Negative, Urine Ketones Negative, Urine Occult Blood Negative, Urine Nitrite Negative, Urine Bilirubin Negative, Urine Urobilinogen Normal, Urine Leukocyte Esterase 1+H, Urine RBC 0-2H, Urine WBC 0-2, Urine Squamous Epithelial Cells None, Urine Bacteria Few, Urine Eosinophils None seen, Urine Random Creatinine [Pending], Urine Random Microalbumin [Pending], Urine Random Total Protein 21, Urine Random Sodium 70, Urine Creatinine 173.3, Urine Microalbumin/Creatinine Ratio [Pending] 10/17/16 06:15: White Blood Count 8.4, Red Blood Count 4.50L, Hemoglobin 13.3L, Hematocrit 38.8L , Mean Corpuscular Volume 86, Mean Corpuscular Hemoglobin 29.4, Mean Corpuscular Hemoglobin Concent 34.2, Red Cell Distribution Width 12.9, Platelet Count 233, Mean Platelet Volume 7.7, Neutrophils (%) (Auto) 70.1, Lymphocytes (% ) (Auto) 21.5, Monocytes (%) (Auto) 6.8, Eosinophils (%) (Auto) 1.0, Basophils ( %) (Auto) 0.6, Sodium Level 135, Potassium Level 4.0, Chloride Level 99, Carbon Dioxide Level 24, Anion Gap 12, Blood Urea Nitrogen 13, Creatinine 1.1, Estimat Glomerular Filtration Rate > 60, Glucose Level 113H, Calcium Level 9.0 Height (Feet): 6 Height (Inches): 1.00 Weight (Pounds): 276 General Appearance: lethargic EENT: normal ENT inspection Neck: normal alignment Cardiovascular: normal peripheral pulses, normal rate, regular rhythm Respiratory/Chest: chest wall non-tender, lungs clear, normal breath sounds Abdomen: normal bowel sounds, non tender, soft Extremities: normal inspection Edema: 1+ Arm (L), 1+ Arm (R), 1+ Leg (L), 1+ Leg (R), 1+ Pedal (L), 1+ Pedal ( R), 1+ Generalized Neurologic: responsive, motor weakness Skin: normal pigmentation, warm/dry Objective bl le redness CARLOS BUTLER Oct 17, 2016 13:36
--- NOTE | 2016-10-17 14:39 | Pulmonology Progress Note ---
Assessment/Plan Problems: (1) Cellulitis of right lower extremity (2) Schizo-affective schizophrenia, chronic condition with acute exacerbation (3) MRSA colonization Assessment/Plan improving respiratory treatment continue abx check cultures tolerating diet Subjective ROS Limited/Unobtainable: No Constitutional: Reports: no symptoms HEENT: Repors: no symptoms Cardiovascular: Reports: no symptoms Allergies: Coded Allergies: CHLORPROMAZINE (Verified Allergy, Unknown, 10/13/16) HALOPERIDOL (Verified Allergy, Unknown, 10/13/16) PENICILLINS (Unverified Allergy, Unknown, 10/13/16) ZIPRASIDONE (Verified Allergy, Unknown, 10/13/16) Objective Last 24 Hour Vital Signs Date Time Temp Pulse Resp B/P (MAP) Pulse Ox O2 Delivery O2 Flow Rate FiO2 10/17/16 12:18 97.7 110 22 109/69 97 Room Air 10/17/16 10:05 122/79 10/17/16 07:05 77 20 Room Air 10/17/16 00:00 98.1 96 21 122/79 96 Room Air 10/16/16 20:00 98.0 99 21 119/72 94 Room Air 10/16/16 19:42 102 20 Room Air 10/16/16 16:02 97.9 104 19 122/62 95 Room Air Intake and Output 10/17/16 10/18/16 19:00 07:00 Intake Total 240 ml Balance 240 ml Intake Oral 240 ml General Appearance: WD/WN HEENT: normocephalic, atraumatic Respiratory/Chest: chest wall non-tender, normal breath sounds Cardiovascular: normal peripheral pulses, normal rate, regular rhythm Abdomen: normal bowel sounds, soft, non tender, no organomegaly Genitourinary: normal external genitalia Extremities: no clubbing Skin: no rash, no lesions Laboratory Tests 10/16/16 16:17: Urine Color Yellow, Urine Appearance Clear, Urine pH 7, Urine Specific [place] 1.010, Urine Protein 1+H, Urine Glucose (UA) Negative, Urine Ketones Negative, Urine Occult Blood Negative, Urine Nitrite Negative, Urine Bilirubin Negative, Urine Urobilinogen Normal, Urine Leukocyte Esterase 1+H, Urine RBC 0-2H, Urine WBC 0-2, Urine Squamous Epithelial Cells None, Urine Bacteria Few, Urine Eosinophils None seen, Urine Random Creatinine [Pending], Urine Random Microalbumin [Pending], Urine Random Total Protein 21, Urine Random Sodium 70, Urine Creatinine 173.3, Urine Microalbumin/Creatinine Ratio [Pending] 10/17/16 06:15: White Blood Count 8.4, Red Blood Count 4.50L, Hemoglobin 13.3L, Hematocrit 38.8L , Mean Corpuscular Volume 86, Mean Corpuscular Hemoglobin 29.4, Mean Corpuscular Hemoglobin Concent 34.2, Red Cell Distribution Width 12.9, Platelet Count 233, Mean Platelet Volume 7.7, Neutrophils (%) (Auto) 70.1, Lymphocytes (% ) (Auto) 21.5, Monocytes (%) (Auto) 6.8, Eosinophils (%) (Auto) 1.0, Basophils ( %) (Auto) 0.6, Sodium Level 135, Potassium Level 4.0, Chloride Level 99, Carbon Dioxide Level 24, Anion Gap 12, Blood Urea Nitrogen 13, Creatinine 1.1, Estimat Glomerular Filtration Rate > 60, Glucose Level 113H, Calcium Level 9.0 Current Medications Medications (Trade) Dose Ordered Sig/Calvin Route PRN Reason Start Time Stop Time Status Last Admin Dose Admin Acetaminophen (Tylenol) 650 mg Q4H PRN ORAL fever 10/13/16 15:15 11/12/16 15:14 Albuterol/ Ipratropium (DuoNeb 0.5-3(2.5)mg/3ml) 3 ml Q4H PRN HHN Shortness of Breath 10/13/16 15:15 10/18/16 15:14 Atorvastatin Calcium (Lipitor) 20 mg BEDTIME ORAL 10/14/16 21:00 11/13/16 20:59 10/16/16 20:37 Bisacodyl (Dulcolax) 10 mg DAILYPRN PRN RECTAL Constipation 10/14/16 19:00 11/13/16 18:59 Clindamycin HCl (Cleocin) 450 mg EVERY 6 HOURS ORAL 10/14/16 18:00 10/21/16 17:59 10/17/16 12:17 Clonidine HCl (Catapres) 0.1 mg Q4H PRN ORAL SBP > 160 10/13/16 15:15 11/12/16 15:14 Dextrose (Dextrose 50%) STAT PRN IV Hypoglycemia 10/13/16 15:15 11/12/16 15:14 Diazepam (Valium) 10 mg Q8HR PRN ORAL For Anxiety 10/14/16 19:00 10/21/16 18:59 10/16/16 20:37 Diphenhydramine HCl (Benadryl) 25 mg Q6H PRN ORAL Itching 10/14/16 19:00 11/13/16 18:59 Divalproex Sodium (Depakote ER) 500 mg BEDTIME ORAL 10/14/16 21:00 11/13/16 20:59 10/16/16 20:37 Docusate Sodium (Colace) 100 mg DAILY ORAL 10/15/16 09:00 11/14/16 08:59 10/17/16 10:05 Doxazosin Mesylate (Cardura) 8 mg DAILY ORAL 10/15/16 09:00 11/14/16 08:59 10/17/16 10:05 Finasteride (Proscar) 5 mg DAILY ORAL 10/15/16 09:00 11/14/16 08:59 10/17/16 10:05 Heparin Sodium (Porcine) (Heparin 5000 units/ml) 5,000 units EVERY 12 HOURS SUBQ 10/13/16 21:00 11/12/16 20:59 10/17/16 10:07 Ibuprofen (Motrin) 600 mg Q6H PRN ORAL For Pain 10/14/16 19:00 11/13/16 18:59 Levofloxacin (Levaquin) 750 mg Q24H ORAL 10/13/16 20:00 10/20/16 19:59 10/16/16 20:36 Levothyroxine Sodium (Synthroid) 50 mcg DAILY@0630 ORAL 10/15/16 06:30 11/14/16 06:29 10/17/16 05:49 Lisinopril (Zestril) 2.5 mg DAILY ORAL 10/15/16 09:00 11/14/16 08:59 10/17/16 10:05 Morphine Sulfate (Morphine Sulfate) 2 mg Q4H PRN IVP Moderate Pain (Pain Scale 4-6) 10/13/16 15:15 10/20/16 15:14 Mupirocin (Bactroban Oint) 1 applic THREE TIMES A DAY TOPIC 10/15/16 18:00 10/20/16 17:59 10/17/16 13:14 Nitroglycerin (Ntg) 0.4 mg Every 5 Minutes PRN SL Prn Chest Pain 10/13/16 15:15 11/12/16 15:14 Ondansetron HCl (Zofran) 4 mg Q6H PRN IVP Nausea & Vomiting 10/13/16 15:15 11/12/16 15:14 Polyethylene Glycol (Miralax) 17 gm DAILYPRN PRN ORAL Constipation 10/13/16 15:15 11/12/16 15:14 Risperidone (RisperDAL) 2 mg BEDTIME ORAL 10/14/16 21:00 11/13/16 20:59 10/16/16 20:36 Temazepam (Restoril) 15 mg HSPRN PRN ORAL Insomnia 10/13/16 15:15 10/20/16 15:14 10/16/16 23:45 MAGNO KERN Oct 17, 2016 14:39
[2016-10-17 16:00] VITALS: BP 107/78
--- NOTE | 2016-10-17 17:37 | Infectious Diseases Prog Note ---
Assessment/Plan Problems: (1) Cellulitis of right lower extremity Assessment & Plan: improving on clindamycin and levaquin, await blood culture , will treat for 14 days (2) Hyponatremia Assessment & Plan: dehydration related, monitor sodium level (3) Hypoxemia Assessment & Plan: pulmonogist is following (4) MRSA colonization Assessment & Plan: will start bactroban for five days to decolonize him Subjective ROS Limited/Unobtainable: Yes Allergies: Coded Allergies: CHLORPROMAZINE (Verified Allergy, Unknown, 10/13/16) HALOPERIDOL (Verified Allergy, Unknown, 10/13/16) PENICILLINS (Unverified Allergy, Unknown, 10/13/16) ZIPRASIDONE (Verified Allergy, Unknown, 10/13/16) Objective Vital Signs Last 24 Hour Vital Signs Date Time Temp Pulse Resp B/P (MAP) Pulse Ox O2 Delivery O2 Flow Rate FiO2 10/17/16 12:18 97.7 110 22 109/69 97 Room Air 10/17/16 10:05 122/79 10/17/16 07:05 77 20 Room Air 10/17/16 00:00 98.1 96 21 122/79 96 Room Air 10/16/16 20:00 98.0 99 21 119/72 94 Room Air 10/16/16 19:42 102 20 Room Air Height (Feet): 6 Height (Inches): 1.00 Weight (Pounds): 276 General Appearance: WD/WN, no acute distress HEENT: normocephalic, atraumatic, anicteric Respiratory/Chest: chest wall non-tender, lungs clear, normal breath sounds, no respiratory distress Cardiovascular: normal peripheral pulses, normal rate, regular rhythm, no JVD Abdomen: normal bowel sounds, soft, non tender, no organomegaly, non distended , no mass Extremities: no cyanosis, no clubbing Skin: no rash, no lesions, no ulcers Neurologic/Psychiatric: alert, oriented x 3 Laboratory Tests Test 10/17/16 06:15 White Blood Count 8.4 K/UL (4.8-10.8) Red Blood Count 4.50 M/UL (4.70-6.10) L Hemoglobin 13.3 G/DL (14.2-18.0) L Hematocrit 38.8 % (42.0-52.0) L Mean Corpuscular Volume 86 FL (80-99) Mean Corpuscular Hemoglobin 29.4 PG (27.0-31.0) Mean Corpuscular Hemoglobin Concent 34.2 G/DL (32.0-36.0) Red Cell Distribution Width 12.9 % (11.6-14.8) Platelet Count 233 K/UL (150-450) Mean Platelet Volume 7.7 FL (6.5-10.1) Neutrophils (%) (Auto) 70.1 % (45.0-75.0) Lymphocytes (%) (Auto) 21.5 % (20.0-45.0) Monocytes (%) (Auto) 6.8 % (1.0-10.0) Eosinophils (%) (Auto) 1.0 % (0.0-3.0) Basophils (%) (Auto) 0.6 % (0.0-2.0) Sodium Level 135 mEQ/L (135-145) Potassium Level 4.0 mEQ/L (3.4-4.9) Chloride Level 99 mEQ/L (98-107) Carbon Dioxide Level 24 mEQ/L (20-30) Anion Gap 12 (5-15) Blood Urea Nitrogen 13 mg/dL (7-23) Creatinine 1.1 mg/dL (0.7-1.2) Estimat Glomerular Filtration Rate > 60 mL/min (>60) Glucose Level 113 mg/dL (74-106) H Calcium Level 9.0 mg/dL (8.6-10.2) Current Medications Medications (Trade) Dose Ordered Sig/Calvin Route PRN Reason Start Time Stop Time Status Last Admin Dose Admin Acetaminophen (Tylenol) 650 mg Q4H PRN ORAL fever 10/13/16 15:15 11/12/16 15:14 Albuterol/ Ipratropium (DuoNeb 0.5-3(2.5)mg/3ml) 3 ml Q4H PRN HHN Shortness of Breath 10/13/16 15:15 10/18/16 15:14 Atorvastatin Calcium (Lipitor) 20 mg BEDTIME ORAL 10/14/16 21:00 11/13/16 20:59 10/16/16 20:37 Bisacodyl (Dulcolax) 10 mg DAILYPRN PRN RECTAL Constipation 10/14/16 19:00 11/13/16 18:59 Clindamycin HCl (Cleocin) 450 mg EVERY 6 HOURS ORAL 10/14/16 18:00 10/21/16 17:59 10/17/16 12:17 Clonidine HCl (Catapres) 0.1 mg Q4H PRN ORAL SBP > 160 10/13/16 15:15 11/12/16 15:14 Dextrose (Dextrose 50%) STAT PRN IV Hypoglycemia 10/13/16 15:15 11/12/16 15:14 Diazepam (Valium) 10 mg Q8HR PRN ORAL For Anxiety 10/14/16 19:00 10/21/16 18:59 10/16/16 20:37 Diphenhydramine HCl (Benadryl) 25 mg Q6H PRN ORAL Itching 10/14/16 19:00 11/13/16 18:59 Divalproex Sodium (Depakote ER) 500 mg BEDTIME ORAL 10/14/16 21:00 11/13/16 20:59 10/16/16 20:37 Docusate Sodium (Colace) 100 mg DAILY ORAL 10/15/16 09:00 11/14/16 08:59 10/17/16 10:05 Doxazosin Mesylate (Cardura) 8 mg DAILY ORAL 10/15/16 09:00 11/14/16 08:59 10/17/16 10:05 Finasteride (Proscar) 5 mg DAILY ORAL 10/15/16 09:00 11/14/16 08:59 10/17/16 10:05 Heparin Sodium (Porcine) (Heparin 5000 units/ml) 5,000 units EVERY 12 HOURS SUBQ 10/13/16 21:00 11/12/16 20:59 10/17/16 10:07 Ibuprofen (Motrin) 600 mg Q6H PRN ORAL For Pain 10/14/16 19:00 11/13/16 18:59 Levofloxacin (Levaquin) 750 mg Q24H ORAL 10/13/16 20:00 10/20/16 19:59 10/16/16 20:36 Levothyroxine Sodium (Synthroid) 50 mcg DAILY@0630 ORAL 10/15/16 06:30 11/14/16 06:29 10/17/16 05:49 Lisinopril (Zestril) 2.5 mg DAILY ORAL 10/15/16 09:00 11/14/16 08:59 10/17/16 10:05 Morphine Sulfate (Morphine Sulfate) 2 mg Q4H PRN IVP Moderate Pain (Pain Scale 4-6) 10/13/16 15:15 10/20/16 15:14 Mupirocin (Bactroban Oint) 1 applic THREE TIMES A DAY TOPIC 10/15/16 18:00 10/20/16 17:59 10/17/16 13:14 Nitroglycerin (Ntg) 0.4 mg Every 5 Minutes PRN SL Prn Chest Pain 10/13/16 15:15 11/12/16 15:14 Ondansetron HCl (Zofran) 4 mg Q6H PRN IVP Nausea & Vomiting 10/13/16 15:15 11/12/16 15:14 Polyethylene Glycol (Miralax) 17 gm DAILYPRN PRN ORAL Constipation 10/13/16 15:15 11/12/16 15:14 Risperidone (RisperDAL) 2 mg BEDTIME ORAL 10/14/16 21:00 11/13/16 20:59 10/16/16 20:36 Temazepam (Restoril) 15 mg HSPRN PRN ORAL Insomnia 10/13/16 15:15 10/20/16 15:14 10/16/16 23:45 Nico Cheng M.D. Oct 17, 2016 17:37
--- NOTE | 2016-10-17 18:47 | Cardiology Report ---
APPROVED REPORT EKG Measurement Heart [id number] Normal sinus rhythm Normal ECG
[2016-10-17 20:00] VITALS: BP 107/81
[2016-10-17] MEDS: Depakote ER 500mg tab ORAL SCH (20:32)
[2016-10-17] MEDS: Atorvastatin 20mg tab ORAL SCH (20:33)
[2016-10-18] VITALS: BP 109/68
[2016-10-18] MEDS: Clindamycin 150mg cap ORAL SCH ×3 (00:37→11:50)
[2016-10-18 04:00] VITALS: BP 139/87
[2016-10-18 06:26] LABS: BASOPHILS % (AUTO) 0.6 % (0.0-2.0); EOSINOPHILS % (AUTO) 0.5 % (0.0-3.0); LYMPHOCYTES % (AUTO) 17.9 % (20.0-45.0); MEAN CORPUSCULAR HEMOGLOBIN 30.1 PG (27.0-31.0); MEAN CORPUSCULAR HGB CONC 34.7 G/DL (32.0-36.0); MEAN CORPUSCULAR VOLUME 87 FL (80-99); MEAN PLATELET VOLUME 8.1 FL (6.5-10.1); MONOCYTES % (AUTO) 6.5 % (1.0-10.0); NEUTROPHILS % (AUTO) 74.5 % (45.0-75.0); PLATELET COUNT 228 K/UL (150-450); WHITE BLOOD COUNT 9.7 K/UL (4.8-10.8)
[2016-10-18 06:36] LABS: ANION GAP 13 (5-15); CALCIUM 9.6 mg/dL (8.6-10.2); CARBON DIOXIDE 25 mEQ/L (20-30); CHLORIDE 99 mEQ/L (98-107); CREATININE 1.2 mg/dL (0.7-1.2); GLOMERULAR FILTRATION RATE > 60 mL/min (>60); HEMOLYSIS 1; POTASSIUM 4.3 mEQ/L (3.4-4.9); SODIUM 137 mEQ/L (135-145)
[2016-10-18 08:00] VITALS: BP 93/57
--- NOTE | 2016-10-18 08:15 | Consultation ---
DATE OF CONSULTATION: 10/15/2016 PSYCHOTHERAPY CONSULTATION PROGRESS NOTE CONSULTING PHYSICIAN: Sylvia Mota M.D. TREATING ATTENDING PHYSICIAN: Severino Bills D.O. History Of Present Illness: The patient is a 61-year-old male patient. The patient has a history of paranoid schizophrenia. The patient was admitted to the hospital for cellulitis of his right lower extremity, hypoxemia, and hyponatremia. The patient was referred for psychotherapy due to his history of mental illness as well as feeling slightly irritable, agitated, and confused. The patient was assessed by the clinician. Denies suicidal or homicidal thoughts of ideation. The patient has some slight paranoia, social anxiety, restlessness, was communicative and able to communicate with the clinician. The patient has history of mental illness and [facility]. Past Medical History: Includes a history of hypoxia, lower extremity cellulitis, and hypertensive urgency. ALLERGIES: The patient is allergic to penicillin. Substance Abuse History: There is no indication of alcohol use, illicit drug abuse, and smoking cigarettes. Psychiatric History: The patient has history of paranoid schizophrenia. The patient has had multiple inpatient psychiatric hospitalizations in the past. Social History: The patient is a 61-year-old male patient from [facility], financially sustained through Medicare and [employer]. Mental Status Examination: The patient is alert and oriented x2, person and place. Mood is . Affect is congruent. Thought process is disorganized. Thought content slightly paranoid. Plan: This clinician assessed this patient, provided the patient with reality orientation and further psychotherapy as well as coping skills. Encouraging the patient to participate in treatment milieu. Continue with medication management and behavioral management. . Sylvia Mota PsyD. : Prakash JOB#: [id number] CC:
[2016-10-18] MEDS: Lisinopril 2.5mg tab ORAL SCH (09:00)
[2016-10-18] MEDS: Docusate 100mg cap ORAL SCH (09:31)
[2016-10-18] MEDS: Doxazosin 4mg tab ORAL SCH (09:32)
[2016-10-18] MEDS: Heparin 5000 units/ml inj SUBQ SCH (09:35)
--- NOTE | 2016-10-18 09:36 | Diagnostic Imaging Report ---
APPROVED REPORT CPT Code: 65973 Present Symptoms Lower Extremity Edema: Bilateral Stasis Disease Ulcer: Right Shortness of breath Comments: Bilateral swelling from the knee distally. Hx HTN. Technically difficult study due to vessel depth and edema (mid-thigh to calf area). RIGHT LEG: Venous imaging reveals a patent deep venous system. There is no evidence of thrombus within the femoral, popliteal or tibial segments. The greater saphenous vein is also within normal limits. Doppler indicates normal spontaneous flow within these segments. LEFT LEG: Venous imaging reveals a patent deep venous system. There is no evidence of thrombus within the femoral, popliteal or tibial segments. The greater saphenous vein is also within normal limits. Doppler indicates normal spontaneous flow within these segments. Calf veins not well visualized, however no dilated appearance as typically seen with acute deep vein thrombosis.
[2016-10-18 12:00] VITALS: BP 132/74
[2016-10-18] MEDS ORDERED: LEVAQUIN750 MG ORAL (12:17)
[2016-10-18] MEDS ORDERED: CLEOCIN HCL300 MG PO (12:17)
[2016-10-18] MEDS ORDERED: BACTROBAN NASAL1 GM NASAL (12:26)
[2016-10-18] MEDS ORDERED: DEPAKOTE ER500 MG ORAL (12:28)
[2016-10-18] MEDS ORDERED: IBUPROFEN600 MG ORAL (12:29)
[2016-10-18] MEDS ORDERED: RISPERDAL2 MG ORAL (12:31)
[2016-10-18] MEDS ORDERED: CATAPRES0.1 MG ORAL (12:32)
--- NOTE | 2016-10-18 14:22 | General Progress Note ---
Assessment/Plan Problem List: (1) Cellulitis of right lower extremity ICD Codes: L03.115 - Cellulitis of right lower limb SNOMED: 504224546 (2) Cellulitis of left leg ICD Codes: L03.116 - Cellulitis of left lower limb SNOMED: 399710472 (3) Hypoxemia ICD Codes: R09.02 - Hypoxemia SNOMED: 301744377 (4) Hyponatremia ICD Codes: E87.1 - Hypo-osmolality and hyponatremia SNOMED: 40902539 (5) Schizo-affective schizophrenia, chronic condition with acute exacerbation ICD Codes: F25.8 - Other schizoaffective disorders SNOMED: 284207621 Status: stable, progressing, tolerating diet Assessment/Plan ot pt diet wound care abx cbc bmp am ltach transfer or snf Subjective Constitutional: Reports: weakness Allergies: Coded Allergies: CHLORPROMAZINE (Verified Allergy, Unknown, 10/13/16) HALOPERIDOL (Verified Allergy, Unknown, 10/13/16) PENICILLINS (Unverified Allergy, Unknown, 10/13/16) ZIPRASIDONE (Verified Allergy, Unknown, 10/13/16) All Systems: reviewed and negative except above Subjective sitting calm Objective Last 24 Hour Vital Signs Date Time Temp Pulse Resp B/P (MAP) Pulse Ox O2 Delivery O2 Flow Rate FiO2 10/18/16 12:00 97.9 86 18 132/74 95 Room Air 10/18/16 09:00 93/57 10/18/16 08:00 96.2 104 20 93/57 95 Room Air 10/18/16 07:25 90 18 Room Air 10/18/16 04:00 97.9 90 18 139/87 97 Room Air 10/18/16 00:00 97.9 95 21 109/68 94 Room Air 10/17/16 20:29 112 18 Room Air 10/17/16 20:00 98.4 94 21 107/81 96 Room Air 10/17/16 16:00 98.0 114 20 107/78 99 Room Air Intake and Output 10/18/16 10/19/16 19:00 07:00 Intake Total 300 ml Balance 300 ml Intake Oral 300 ml # Voids 1 Laboratory Tests 10/18/16 05:15: White Blood Count 9.7, Red Blood Count 4.40L, Hemoglobin 13.2L, Hematocrit 38.1L , Mean Corpuscular Volume 87, Mean Corpuscular Hemoglobin 30.1, Mean Corpuscular Hemoglobin Concent 34.7, Red Cell Distribution Width 13.0, Platelet Count 228, Mean Platelet Volume 8.1, Neutrophils (%) (Auto) 74.5, Lymphocytes (% ) (Auto) 17.9L, Monocytes (%) (Auto) 6.5, Eosinophils (%) (Auto) 0.5, Basophils (%) (Auto) 0.6, Sodium Level 137, Potassium Level 4.3, Chloride Level 99, Carbon Dioxide Level 25, Anion Gap 13, Blood Urea Nitrogen 14, Creatinine 1.2, Estimat Glomerular Filtration Rate > 60, Glucose Level 108H, Calcium Level 9.6 Height (Feet): 6 Height (Inches): 1.00 Weight (Pounds): 276 General Appearance: lethargic EENT: normal ENT inspection Neck: normal alignment Cardiovascular: normal peripheral pulses, normal rate, regular rhythm Respiratory/Chest: chest wall non-tender, lungs clear, normal breath sounds Abdomen: normal bowel sounds, non tender, soft Extremities: normal inspection Edema: 1+ Arm (L), 1+ Arm (R), 1+ Leg (L), 1+ Leg (R), 1+ Pedal (L), 1+ Pedal ( R), 1+ Generalized Neurologic: responsive, motor weakness Skin: normal pigmentation, warm/dry Objective bl le redness CARLOS BUTLER Oct 18, 2016 14:22
--- NOTE | 2016-10-18 15:47 | Diagnostic Imaging Report ---
Indication: Dyspnea Comparison: 10/13/16 A single view chest radiograph was obtained. Findings: The heart is normal in size. Lungs are clear. Bones are osteopenic. Impression: No acute disease
--- NOTE | 2016-10-18 15:56 | Pulmonology Progress Note ---
Assessment/Plan Problems: (1) Cellulitis of right lower extremity (2) Schizo-affective schizophrenia, chronic condition with acute exacerbation (3) MRSA colonization Assessment/Plan improving respiratory treatment continue abx check cultures tolerating diet dc planning all notes and meds reviewed Subjective ROS Limited/Unobtainable: No Constitutional: Reports: no symptoms HEENT: Repors: no symptoms Respiratory: Reports: no symptoms Allergies: Coded Allergies: CHLORPROMAZINE (Verified Allergy, Unknown, 10/13/16) HALOPERIDOL (Verified Allergy, Unknown, 10/13/16) PENICILLINS (Unverified Allergy, Unknown, 10/13/16) ZIPRASIDONE (Verified Allergy, Unknown, 10/13/16) Objective Last 24 Hour Vital Signs Date Time Temp Pulse Resp B/P (MAP) Pulse Ox O2 Delivery O2 Flow Rate FiO2 10/18/16 12:00 97.9 86 18 132/74 95 Room Air 10/18/16 09:00 93/57 10/18/16 08:00 96.2 104 20 93/57 95 Room Air 10/18/16 07:25 90 18 Room Air 10/18/16 04:00 97.9 90 18 139/87 97 Room Air 10/18/16 00:00 97.9 95 21 109/68 94 Room Air 10/17/16 20:29 112 18 Room Air 10/17/16 20:00 98.4 94 21 107/81 96 Room Air 10/17/16 16:00 98.0 114 20 107/78 99 Room Air Intake and Output 10/18/16 10/19/16 19:00 07:00 Intake Total 300 ml Balance 300 ml Intake Oral 300 ml # Voids 1 General Appearance: WD/WN HEENT: normocephalic, anicteric Respiratory/Chest: chest wall non-tender, normal breath sounds Cardiovascular: normal rate, regular rhythm Abdomen: normal bowel sounds, soft, non tender Genitourinary: normal external genitalia Extremities: no clubbing Skin: no rash, no lesions Laboratory Tests 10/18/16 05:15: White Blood Count 9.7, Red Blood Count 4.40L, Hemoglobin 13.2L, Hematocrit 38.1L , Mean Corpuscular Volume 87, Mean Corpuscular Hemoglobin 30.1, Mean Corpuscular Hemoglobin Concent 34.7, Red Cell Distribution Width 13.0, Platelet Count 228, Mean Platelet Volume 8.1, Neutrophils (%) (Auto) 74.5, Lymphocytes (% ) (Auto) 17.9L, Monocytes (%) (Auto) 6.5, Eosinophils (%) (Auto) 0.5, Basophils (%) (Auto) 0.6, Sodium Level 137, Potassium Level 4.3, Chloride Level 99, Carbon Dioxide Level 25, Anion Gap 13, Blood Urea Nitrogen 14, Creatinine 1.2, Estimat Glomerular Filtration Rate > 60, Glucose Level 108H, Calcium Level 9.6 Current Medications Medications (Trade) Dose Ordered Sig/Calvin Route PRN Reason Start Time Stop Time Status Last Admin Dose Admin Acetaminophen (Tylenol) 650 mg Q4H PRN ORAL fever 10/13/16 15:15 11/12/16 15:14 Atorvastatin Calcium (Lipitor) 20 mg BEDTIME ORAL 10/14/16 21:00 11/13/16 20:59 10/17/16 20:33 Bisacodyl (Dulcolax) 10 mg DAILYPRN PRN RECTAL Constipation 10/14/16 19:00 11/13/16 18:59 Clindamycin HCl (Cleocin) 450 mg EVERY 6 HOURS ORAL 10/14/16 18:00 10/21/16 17:59 10/18/16 11:50 Clonidine HCl (Catapres) 0.1 mg Q4H PRN ORAL SBP > 160 10/13/16 15:15 11/12/16 15:14 Dextrose (Dextrose 50%) STAT PRN IV Hypoglycemia 10/13/16 15:15 11/12/16 15:14 Diazepam (Valium) 10 mg Q8HR PRN ORAL For Anxiety 10/14/16 19:00 10/21/16 18:59 10/18/16 14:25 Diphenhydramine HCl (Benadryl) 25 mg Q6H PRN ORAL Itching 10/14/16 19:00 11/13/16 18:59 Divalproex Sodium (Depakote ER) 500 mg BEDTIME ORAL 10/14/16 21:00 11/13/16 20:59 10/17/16 20:32 Docusate Sodium (Colace) 100 mg DAILY ORAL 10/15/16 09:00 11/14/16 08:59 10/18/16 09:31 Doxazosin Mesylate (Cardura) 8 mg DAILY ORAL 10/15/16 09:00 11/14/16 08:59 10/18/16 09:32 Finasteride (Proscar) 5 mg DAILY ORAL 10/15/16 09:00 11/14/16 08:59 10/18/16 09:32 Heparin Sodium (Porcine) (Heparin 5000 units/ml) 5,000 units EVERY 12 HOURS SUBQ 10/13/16 21:00 11/12/16 20:59 10/18/16 09:35 Ibuprofen (Motrin) 600 mg Q6H PRN ORAL For Pain 10/14/16 19:00 11/13/16 18:59 Levofloxacin (Levaquin) 750 mg Q24H ORAL 10/13/16 20:00 10/20/16 19:59 10/17/16 20:32 Levothyroxine Sodium (Synthroid) 50 mcg DAILY@0630 ORAL 10/15/16 06:30 11/14/16 06:29 10/18/16 05:50 Lisinopril (Zestril) 2.5 mg DAILY ORAL 10/15/16 09:00 11/14/16 08:59 10/17/16 10:05 Morphine Sulfate (Morphine Sulfate) 2 mg Q4H PRN IVP Moderate Pain (Pain Scale 4-6) 10/13/16 15:15 10/20/16 15:14 Mupirocin (Bactroban Oint) 1 applic THREE TIMES A DAY TOPIC 10/15/16 18:00 10/20/16 17:59 10/18/16 13:10 Nitroglycerin (Ntg) 0.4 mg Every 5 Minutes PRN SL Prn Chest Pain 10/13/16 15:15 11/12/16 15:14 Ondansetron HCl (Zofran) 4 mg Q6H PRN IVP Nausea & Vomiting 10/13/16 15:15 11/12/16 15:14 Polyethylene Glycol (Miralax) 17 gm DAILYPRN PRN ORAL Constipation 10/13/16 15:15 11/12/16 15:14 Risperidone (RisperDAL) 2 mg BEDTIME ORAL 10/14/16 21:00 11/13/16 20:59 10/17/16 20:34 Temazepam (Restoril) 15 mg HSPRN PRN ORAL Insomnia 10/13/16 15:15 10/20/16 15:14 10/16/16 23:45 MAGNO KERN Oct 18, 2016 15:56
[2016-10-18 16:00] VITALS: BP 109/69
--- NOTE | 2016-10-18 16:28 | Nephrology Progress Note ---
Assessment/Plan Assessment 1. Hyponatremia, resolved 2. Acute renal failure. 3. Bilateral lower extremity cellulitis. 4. uncontrolled HTN Plan plan to continue iv antibiotic monitoring renal function avoid NSAID replace electrolyte as need it fallow up with urine study Subjective Constitutional: Reports: no symptoms HEENT: Reports: no symptoms Genitourinary: Reports: no symptoms Neurologic/Psychiatric: Reports: no symptoms Subjective alert and awake no complaints Objective Objective Last 24 Hour Vital Signs Date Time Temp Pulse Resp B/P (MAP) Pulse Ox O2 Delivery O2 Flow Rate FiO2 10/18/16 16:00 97.0 88 17 109/69 96 Room Air 10/18/16 12:00 97.9 86 18 132/74 95 Room Air 10/18/16 09:00 93/57 10/18/16 08:00 96.2 104 20 93/57 95 Room Air 10/18/16 07:25 90 18 Room Air 10/18/16 04:00 97.9 90 18 139/87 97 Room Air 10/18/16 00:00 97.9 95 21 109/68 94 Room Air 10/17/16 20:29 112 18 Room Air 10/17/16 20:00 98.4 94 21 107/81 96 Room Air Intake and Output 10/18/16 10/19/16 19:00 07:00 Intake Total 300 ml Balance 300 ml Intake Oral 300 ml # Voids 1 Laboratory Tests 10/18/16 05:15: White Blood Count 9.7, Red Blood Count 4.40L, Hemoglobin 13.2L, Hematocrit 38.1L , Mean Corpuscular Volume 87, Mean Corpuscular Hemoglobin 30.1, Mean Corpuscular Hemoglobin Concent 34.7, Red Cell Distribution Width 13.0, Platelet Count 228, Mean Platelet Volume 8.1, Neutrophils (%) (Auto) 74.5, Lymphocytes (% ) (Auto) 17.9L, Monocytes (%) (Auto) 6.5, Eosinophils (%) (Auto) 0.5, Basophils (%) (Auto) 0.6, Sodium Level 137, Potassium Level 4.3, Chloride Level 99, Carbon Dioxide Level 25, Anion Gap 13, Blood Urea Nitrogen 14, Creatinine 1.2, Estimat Glomerular Filtration Rate > 60, Glucose Level 108H, Calcium Level 9.6 Height (Feet): 6 Height (Inches): 1.00 Weight (Pounds): 276 Objective HEAD AND NECK: No JVP. No LAD. No thyromegaly. Poor dentition. Extraocular movements intact. Pupils are reactive to light and accommodation. LUNGS: Clear to auscultation. CARDIAC: Regular rate and rhythm. S1 and S2. No murmur. No rub. ABDOMEN: Obese, nontender, and nondistended. EXTREMITIES: He has redness, swelling, and some skin breakout throughout bilaterally up to his both calves. At this point, it is nontender. NEUROLOGIC: Cranial nerves II to XII within normal limits. DULCE MARIA MAZA Oct 18, 2016 16:28
--- NOTE | 2016-10-18 17:09 | Infectious Diseases Prog Note ---
Assessment/Plan Problems: (1) Cellulitis of right lower extremity Assessment & Plan: improving on clindamycin and levaquin, await blood culture , will treat for 14 days total (2) Hyponatremia Assessment & Plan: dehydration related, monitor sodium level (3) Hypoxemia Assessment & Plan: pulmonogist is following (4) MRSA colonization Assessment & Plan: on bactroban for five days to decolonize him Subjective ROS Limited/Unobtainable: Yes Allergies: Coded Allergies: CHLORPROMAZINE (Verified Allergy, Unknown, 10/13/16) HALOPERIDOL (Verified Allergy, Unknown, 10/13/16) PENICILLINS (Unverified Allergy, Unknown, 10/13/16) ZIPRASIDONE (Verified Allergy, Unknown, 10/13/16) Objective Vital Signs Last 24 Hour Vital Signs Date Time Temp Pulse Resp B/P (MAP) Pulse Ox O2 Delivery O2 Flow Rate FiO2 10/18/16 16:00 97.0 88 17 109/69 96 Room Air 10/18/16 12:00 97.9 86 18 132/74 95 Room Air 10/18/16 09:00 93/57 10/18/16 08:00 96.2 104 20 93/57 95 Room Air 10/18/16 07:25 90 18 Room Air 10/18/16 04:00 97.9 90 18 139/87 97 Room Air 10/18/16 00:00 97.9 95 21 109/68 94 Room Air 10/17/16 20:29 112 18 Room Air 10/17/16 20:00 98.4 94 21 107/81 96 Room Air Height (Feet): 6 Height (Inches): 1.00 Weight (Pounds): 276 General Appearance: WD/WN, no acute distress HEENT: normocephalic, atraumatic, anicteric Respiratory/Chest: chest wall non-tender, lungs clear, normal breath sounds, no respiratory distress Cardiovascular: normal peripheral pulses, normal rate, regular rhythm, no JVD Abdomen: normal bowel sounds, soft, non tender, no organomegaly, non distended Extremities: no cyanosis, no clubbing Skin: no rash, no lesions Laboratory Tests Test 10/18/16 05:15 White Blood Count 9.7 K/UL (4.8-10.8) Red Blood Count 4.40 M/UL (4.70-6.10) L Hemoglobin 13.2 G/DL (14.2-18.0) L Hematocrit 38.1 % (42.0-52.0) L Mean Corpuscular Volume 87 FL (80-99) Mean Corpuscular Hemoglobin 30.1 PG (27.0-31.0) Mean Corpuscular Hemoglobin Concent 34.7 G/DL (32.0-36.0) Red Cell Distribution Width 13.0 % (11.6-14.8) Platelet Count 228 K/UL (150-450) Mean Platelet Volume 8.1 FL (6.5-10.1) Neutrophils (%) (Auto) 74.5 % (45.0-75.0) Lymphocytes (%) (Auto) 17.9 % (20.0-45.0) L Monocytes (%) (Auto) 6.5 % (1.0-10.0) Eosinophils (%) (Auto) 0.5 % (0.0-3.0) Basophils (%) (Auto) 0.6 % (0.0-2.0) Sodium Level 137 mEQ/L (135-145) Potassium Level 4.3 mEQ/L (3.4-4.9) Chloride Level 99 mEQ/L (98-107) Carbon Dioxide Level 25 mEQ/L (20-30) Anion Gap 13 (5-15) Blood Urea Nitrogen 14 mg/dL (7-23) Creatinine 1.2 mg/dL (0.7-1.2) Estimat Glomerular Filtration Rate > 60 mL/min (>60) Glucose Level 108 mg/dL (74-106) H Calcium Level 9.6 mg/dL (8.6-10.2) Current Medications Medications (Trade) Dose Ordered Sig/Calvin Route PRN Reason Start Time Stop Time Status Last Admin Dose Admin Acetaminophen (Tylenol) 650 mg Q4H PRN ORAL fever 10/13/16 15:15 11/12/16 15:14 Atorvastatin Calcium (Lipitor) 20 mg BEDTIME ORAL 10/14/16 21:00 11/13/16 20:59 10/17/16 20:33 Bisacodyl (Dulcolax) 10 mg DAILYPRN PRN RECTAL Constipation 10/14/16 19:00 11/13/16 18:59 Clindamycin HCl (Cleocin) 450 mg EVERY 6 HOURS ORAL 10/14/16 18:00 10/21/16 17:59 10/18/16 11:50 Clonidine HCl (Catapres) 0.1 mg Q4H PRN ORAL SBP > 160 10/13/16 15:15 11/12/16 15:14 Dextrose (Dextrose 50%) STAT PRN IV Hypoglycemia 10/13/16 15:15 11/12/16 15:14 Diazepam (Valium) 10 mg Q8HR PRN ORAL For Anxiety 10/14/16 19:00 10/21/16 18:59 10/18/16 14:25 Diphenhydramine HCl (Benadryl) 25 mg Q6H PRN ORAL Itching 10/14/16 19:00 11/13/16 18:59 Divalproex Sodium (Depakote ER) 500 mg BEDTIME ORAL 10/14/16 21:00 11/13/16 20:59 10/17/16 20:32 Docusate Sodium (Colace) 100 mg DAILY ORAL 10/15/16 09:00 11/14/16 08:59 10/18/16 09:31 Doxazosin Mesylate (Cardura) 8 mg DAILY ORAL 10/15/16 09:00 11/14/16 08:59 10/18/16 09:32 Finasteride (Proscar) 5 mg DAILY ORAL 10/15/16 09:00 11/14/16 08:59 10/18/16 09:32 Heparin Sodium (Porcine) (Heparin 5000 units/ml) 5,000 units EVERY 12 HOURS SUBQ 10/13/16 21:00 11/12/16 20:59 10/18/16 09:35 Ibuprofen (Motrin) 600 mg Q6H PRN ORAL For Pain 10/14/16 19:00 11/13/16 18:59 Levofloxacin (Levaquin) 750 mg Q24H ORAL 10/13/16 20:00 10/20/16 19:59 10/17/16 20:32 Levothyroxine Sodium (Synthroid) 50 mcg DAILY@0630 ORAL 10/15/16 06:30 11/14/16 06:29 10/18/16 05:50 Lisinopril (Zestril) 2.5 mg DAILY ORAL 10/15/16 09:00 11/14/16 08:59 10/17/16 10:05 Morphine Sulfate (Morphine Sulfate) 2 mg Q4H PRN IVP Moderate Pain (Pain Scale 4-6) 10/13/16 15:15 10/20/16 15:14 Mupirocin (Bactroban Oint) 1 applic THREE TIMES A DAY TOPIC 10/15/16 18:00 10/20/16 17:59 10/18/16 13:10 Nitroglycerin (Ntg) 0.4 mg Every 5 Minutes PRN SL Prn Chest Pain 10/13/16 15:15 11/12/16 15:14 Ondansetron HCl (Zofran) 4 mg Q6H PRN IVP Nausea & Vomiting 10/13/16 15:15 11/12/16 15:14 Polyethylene Glycol (Miralax) 17 gm DAILYPRN PRN ORAL Constipation 10/13/16 15:15 11/12/16 15:14 Risperidone (RisperDAL) 2 mg BEDTIME ORAL 10/14/16 21:00 11/13/16 20:59 10/17/16 20:34 Temazepam (Restoril) 15 mg HSPRN PRN ORAL Insomnia 10/13/16 15:15 10/20/16 15:14 10/16/16 23:45 Nico Cheng M.D. Oct 18, 2016 17:09
--- NOTE | 2016-10-18 20:02 | Progress Note ---
DATE: 10/18/2016 SUBJECTIVE: This is a 61-year-old male patient with cellulitis, altered mental status, and confusion, intermittent bouts of agitation and irritability. Plan: I am going to treat him with medication regimen to prevent any decline in his cognition. Chart was reviewed and discussed with the staff. The patient was seen and assessed at the bedside. Lucille Ramires M.D. DR: Mary JOB#: [id number] CC:
[2016-10-19 14:30] LABS: CREATININE RANDOM URINE 159.5 mg/dL (Not Estab.); MICROALBUMIN/CREATININE RATIO 32.2 mg/g creat (0.0-30.0)
--- NOTE | 2016-10-20 10:55 | Discharge Summary ---
Discharge Summary Hospital Course Date of Admission Oct 13, 2016 at 15:05 Date of Discharge Oct 18, 2016 at 18:11 Admitting Diagnosis cellulitis HPI Nabor Garcia is a 61 year old male who was admitted on Oct 13, 2016 at 15:05 for Cellulitis Hospital Course [id number] Discharge Discharge Disposition Patient was discharged to SNF/Subacute Facility(03) Discharge Diagnoses: Geetha Marx NP Oct 20, 2016 10:55
--- NOTE | 2016-10-21 05:30 | Discharge Summary 2 SIG ---
DATE OF ADMISSION: 10/13/2016 DATE OF DISCHARGE: 10/18/2016 CONSULTANTS: 1. Nisa Burleson M.D. 2. Omaira Martinez M.D. 3. Nico Cheng M.D. 4. Tammie Thomas M.D. 5. Lucille Ramires M.D. 6. Sylvia Mota M.D. Brief Hospital Course: The patient is a 61-year-old male from [facility], who was brought in by EMS to ED for episode of desaturation. He has history of schizoaffective/Asperger syndrome, COPD, asthma, and hypothyroidism. On evaluation at ED, lower extremities had diffuse redness from mid calf down. He was saturating 100% on room air and lungs were clear to auscultation bilaterally. EKG was in normal sinus rhythm. Troponin was negative. Chest x-ray showed mild left-sided pleural effusion. Due to bilateral lower extremity cellulitis, he was started on IV vancomycin and the patient was admitted to medical floor. He was given IV hydration and was continued on IV antibiotic vancomycin. Cefepime was added. Cultures were obtained, blood culture did not isolate any growth. MRSA screen was positive. He was given Bactroban for five days to decolonize. The patient refused to get any further IV antibiotics. Antibiotic was then switched to p.o. clindamycin and Levaquin. He had been uncooperative and refusing medications and care. The patient was yelling and screaming. He was unable to understand, process and communicate information given to him. He was given Risperdal 2 mg and Depakote ER 500 mg at bedtime. Fluphenazine was given x1. He was diagnosed to have paranoid schizophrenia with acute exacerbation of symptoms. The patient had hyponatremia and renal failure. Sodium was 129. Random urine was 70. He was given pulmonary support with breathing treatments p.r.n. Venous duplex of lower extremity showed no evidence of DVT. Calf veins were not well visualized; however, there was no dilated appearance as typically seen with acute DVT. Repeat chest x-ray showed no acute disease. He has been tolerating diet and was eventually discharged back to SNF. FINAL DIAGNOSES: 1. Cellulitis of bilateral lower extremity. 2. Paranoid schizophrenia. 3. Hyponatremia. 4. Hypoxemia. 5. Methicillin-resistant Staphylococcus aureus colonization. 6. Uncontrolled hypertension. 7. Acute renal failure. 8. Schizoaffective disorder, bipolar type. DISPOSITION: The patient was discharged to [facility]. DISCHARGE MEDICATIONS: Refer to medication list. Severino Bills D.O. I have been assigned to dictate discharge summary on this account and I was not involved in the patient's management. Geetha Marx N.P. DR: LAUREN JOB#: [id number] CC: RJ
== END 2016-10-18 18:11 | DRG 603 ==
LOC: EDBD 13:47 → EDBEDREQSVC 14:29 → EDBEDREQ 14:29 → EMR 14:48 → 4E 15:05 → EDBEDREQ 15:30
DX: L03.116 Cellulitis of left lower limb (principal); N17.9 Acute kidney failure, unspecified; E87.1 Hypo-osmolality and hyponatremia; F20.0 Paranoid schizophrenia; F84.5 Asperger's syndrome; F84.0 Autistic disorder; R09.02 Hypoxemia; L03.115 Cellulitis of right lower limb; I16.0 Hypertensive urgency; J44.9 Chronic obstructive pulmonary disease, unspecified; E03.9 Hypothyroidism, unspecified; F25.0 Schizoaffective disorder, bipolar type; Z22.322 Carrier or suspected carrier of Methicillin resistant Staphylococcus aureus; Z88.0 Allergy status to penicillin; Z88.8 Allergy status to other drugs, medicaments and biological substances
CPT/HCPCS: 36415; 36600; 71010; 80048; 80053; 81001; 82043; 82044; 82550; 82553; 82570; 82803; 83880; 84300; 84484; 85025; 87040; 87081; 89050; 93005; 93970; 94664; 97803; 99285; S0077